=== PATIENT | female | born 1980 | race Caucasian/White ===

== ENCOUNTER 2017-03-17 08:07 | Emergency (ER) | payer SELFPAY ==
[~2017-03-17] VITALS: Ht 165.1 cm; Wt 77.1 kg
[~2017-03-17 08:07] MED LIST: ACHYD1T; CALC-52 PO; CALCIUM; CYAN100053 IJ; DCS100C PO; FLUC100T PO; HYDR1TAB PO; IBP800T PO; MULTI-VITAMIN; OXYC1TAB12 PO; PHEN200T27 PO; PREN1TAB14 PO; PSEU120T53 PO; SULF1TAB38 PO; VIT B6; [UNRECOGNIZED DRUG - REMARK]; diflucan
[2017-03-17] MEDS ORDERED: KETOROLAC 60 MG/2 ML VIAL IM ONE (08:45)
--- NOTE | 2017-03-17 08:57 | Diagnostic Imaging Report ---
INDICATION: Hip pain COMPARISON: None FINDINGS: Single frontal view of the pelvis is obtained. No acute fracture, malalignment or osseous destructive process is seen. Hip joint spaces are preserved. Femoral heads appear smooth, round and symmetric. The sacroiliac joints appear unremarkable. IMPRESSION: No acute abnormality is demonstrated. Dictated by: Dictated on workstation # [id number]
--- NOTE | 2017-03-17 08:59 | Diagnostic Imaging Report ---
INDICATION: Right hip pain COMPARISON: None FINDINGS: Two views of the right hip are obtained. No acute fracture, malalignment or osseous destructive process is seen. Femoral head appears smooth and round and the hip joint spaces are preserved. The right sacroiliac joint spaces appear unremarkable. IMPRESSION: No acute abnormalities demonstrated. Dictated by: Dictated on workstation # [id number]
--- NOTE | 2017-03-17 09:13 | ED General ---
General Chief Complaint: Hip/Pelvic Problems Stated Complaint: R HIP PAIN Nursing Triage Note: PT CO OF R HIP PAIN FOR A FEW MONTHS AND WORSENING, PT STATES HAS GONE TO [facility] AND HAS HAD NOT RELIEF Nursing Sepsis Screen: No Definite Risk Source of Information: Patient Exam Limitations: No Limitations Allergies and Home Medications Allergies Coded Allergies: Soap (Unverified Allergy, Mild, RASH, 03/03/15) povidone-iodine (Unverified Allergy, Mild, RASH, 03/03/15) Past Qqpbass-Nicjtw-Aiclei Hx Patient Social History Alcohol Use: Denies Use Recreational Drug Use: No Smoking Status: Never a Smoker Former Smoker/When Quit: Jan 26, 1998 Recent Foreign Travel: No Contact w/Someone Who Travel: No Recent Infectious Disease Expo: No Recent Hopitalizations: No Immunizations Up To Date Tetanus Booster (TDap): More than 5yrs PED Vaccines UTD: Yes Surgeries HX Surgeries: Yes (GASTRIC BYPASS 2002, SINUS SURGERY X2) Respiratory Hx Respiratory Disorders: Yes (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 FOR TB) Cardiovascular Hx Cardiac Disorders: No (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) Neurological Hx Neurological Disorders: No Reproductive System Hx Reproductive Disorders: No Sexually Transmitted Disease: No HIV/AIDS: No Female Reproductive Disorders: Denies Genitourinary Hx Genitourinary Disorders: Yes Genitourinary Disorders: Bladder Infection Gastrointestinal Hx Gastrointestinal Disorders: Yes (GASTRIC BYPASS 2002) Gastrointestinal Disorders: Gastroesophageal Reflux, Hiatal Hernia Musculoskeletal Hx Musculoskeletal Disorders: No Endocrine Hx Endocrine Disorders: No HEENT HX ENT Disorders: Yes (SINUS SURGERY) Loss of Vision: Denies Hearing Impairment: Denies Cancer Hx Cancer: No Psychosocial Hx Psychiatric Problems: No Integumentary HX Skin/Integumentary Disorder: No Blood Transfusions Hx Blood Disorders: No Adverse Reaction to a Blood Tr: No Family Medical History Family Medial History: Diabetes mellitus 19 FATHER 19 MOTHER Physical Exam Vital Signs Vital Sign - Last 12Hours 03/17/17 08:10 Temp 97.6 Pulse 64 Resp 18 B/P (MAP) 141/63 Pulse Ox 97 Capillary Refill : Less Than 3 Seconds Progress/Results/Core Measures Results/Orders My Orders Orders - ZAC CHAMBERS MD Pelvis (03/17/17 08:36) Hip, Right, 2 Views (03/17/17 08:36) Ketorolac Injection (Toradol Injection) (03/17/17 08:45) Medications Given in ED Current Medications Medications Dose Ordered Sig/Adina Route Start Time Stop Time Status Last Admin Dose Admin Ketorolac Tromethamine 60 mg ONCE ONCE IM 03/17/17 08:45 03/17/17 08:46 DC 03/17/17 08:43 60 MG Vital Signs/I&O Vital Sign - Last 12Hours 03/17/17 08:10 Temp 97.6 Pulse 64 Resp 18 B/P (MAP) 141/63 Pulse Ox 97 Blood Pressure Mean: 89 Diagnostic Imaging Diagonstic Imaging: Xray Plain Films/CT/US/NM/MRI: hip Comments Right hip x-ray viewed by me and report reviewed. See report below: NAME: [facility] REC#: [id number] PT STATUS: REG ER : 1980 PHYSICIAN: ZAC CHAMBERS MD ADMIT DATE: 03/17/17/ER Draft Date of Exam:03/17/17 HIP, RIGHT, 2 VIEWS INDICATION: Right hip pain COMPARISON: None FINDINGS: Two views of the right hip are obtained. No acute fracture, malalignment or osseous destructive process is seen. Femoral head appears smooth and round and the hip joint spaces are preserved. The right sacroiliac joint spaces appear unremarkable. IMPRESSION: No acute abnormalities demonstrated. Dictated on workstation # [id number] Dict: 03/17/17 0855 Trans: 03/17/17 0859 ELAN [id number] Interpreted by: LETICIA GLOVER DO Diagonstic Imaging: Xray Plain Films/CT/US/NM/MRI: pelvis Comments Pelvis x-ray viewed by me and report reviewed. See report below: NAME: [facility] REC#: [id number] PT STATUS: REG ER : 1980 PHYSICIAN: ZAC CHAMBERS MD ADMIT DATE: 03/17/17/ER Draft Date of Exam:03/17/17 PELVIS INDICATION: Hip pain COMPARISON: None FINDINGS: Single frontal view of the pelvis is obtained. No acute fracture, malalignment or osseous destructive process is seen. Hip joint spaces are preserved. Femoral heads appear smooth, round and symmetric. The sacroiliac joints appear unremarkable. IMPRESSION: No acute abnormality is demonstrated. Dictated on workstation # [id number] Dict: 03/17/17 0854 Trans: 03/17/17 0857 [facility] [id number] Interpreted by: LETICIA GLOVER DO Departure Impression Impression: Primary Impression: Right hip pain Additional Impression: Sacroiliitis Disposition: 01 HOME, SELF-CARE Condition: Improved Departure-Patient Inst. Decision time for Depature: 09:22 Referrals: NO,LOCAL PHYSICIAN (PCP) Primary Care Physician Patient Instructions: Sacroiliac Joint Pain Add. Discharge Instructions: Use ibuprofen 600 mg every 6 hours or 800 mg every 8 hours for primary pain relief. Add hydrocodone for pain not controlled by ibuprofen. Use your steroids (prednisone) as prescribed. Avoid heavy lifting, excessive bending, or other strenuous activity until pain completely resolves. Call the [facility] tomorrow for an appointment. Return to care if symptoms worsen. Consider applying for hospital financial assistance. Request paperwork at discharge today. Take ibuprofen and prednisone with food or milk to avoid stomach irritation. Please also note that prednisone may cause jitteriness or sleep disturbance. Take it early in the day to avoid sleep disturbance. All discharge instructions reviewed with patient and/or family. Voiced understanding. Scripts Hydrocodone/Acetaminophen (Hydrocodon -Acetaminophen 5-325) 1 Each Tablet 1 EACH PO Q4H Y for PAIN, #10 TAB Prov: ZAC CHAMBERS MD 03/17/17 Prednisone (Prednisone) 20 Mg Tab 40 MG PO DAILY, #8 TAB Prov: ZAC CHAMBERS MD 03/17/17 ZAC CHAMBERS MD March 17, 2017 09:13
[2017-03-17] MEDS ORDERED: PRD20T PO (09:25)
[2017-03-17] MEDS ORDERED: HYDR-3812 PO (09:25)
[2017-03-17] MEDS ORDERED: HYDROcodone/APAP 5 MG/325 MG (LORTAB) TAB PO ONE (09:30)
[2017-03-17 09:34] VITALS: BP 141/63
== END 2017-03-17 09:34 | disposition home or self-care (01) ==
LOC: EDUNIT# 08:07 → ER 08:08
DX: M25.551 Pain in right hip (principal); M46.1 Sacroiliitis, not elsewhere classified
CPT/HCPCS: 72170; 73502; 99283

== ENCOUNTER 2019-10-16 15:33 | Emergency (ER) | payer SELFPAY ==
[~2019-10-16] VITALS: Ht 173 cm; Wt 90.0 kg
[~2019-10-16 15:33] MED LIST changes: +ACHD5005 PO; +PRD20T PO
[2019-10-16] MEDS ORDERED: KETOROLAC 60 MG/2 ML VIAL IM ONE (16:00)
--- NOTE | 2019-10-16 16:03 | ED GU-Female ---
General Chief Complaint: General Problems/Pain Stated Complaint: LOW BACK PAIN Nursing Triage Note: Patient reports right lower back pain radiating down her right leg pain Nursing Sepsis Screen: No Definite Risk Source: patient, family (daughter) Exam Limitations: no limitations History of Present Illness Date Seen by Provider: Oct 16, 2019 Time Seen by Provider: 15:39 Initial Comments Presents ER by private conveyance with her daughter and chief complaint of low pelvic pain. She also complains of some aching in her right ear. She's had no d ischarge fevers chills cough sore throat or shortness of breath. She says this pain is consistent with her ovulatory pain she's been experiencing for the past several months. She's following with Dr. Werner and has plans for hysterectomy in December. She's had endometriosis before. He put her on ketorolac that she only takes one dose a day. Her last dose she took was yesterday. She says in the past she's coming in and received an injection of Toradol and this is helped significantly with her pain. She's having no diarrhea, dysuria, constipation. Allergies and Home Medications Allergies Coded Allergies: Soap (Unverified Allergy, Mild, RASH, 03/03/15) povidone-iodine (Unverified Allergy, Mild, RASH, 03/03/15) Home Medications Hydrocodone Bit/Acetaminophen 1 Each Tablet, 1 EACH PO Q4H PRN for PAIN Prescribed by: ZAC SHEIKH on 03/17/17924 Prednisone 20 Mg Tab, 40 MG PO DAILY Prescribed by: ZAC SHEIKH on 03/17/17924 Patient Home Medication List Home Medication List Reviewed: Yes Review of Systems Review of Systems Constitutional: No chills, No diaphoresis EENTM: No ear discharge, No ear pain Respiratory: No cough, No phlegm, No short of breath Cardiovascular: No chest pain, No edema Gastrointestinal: see HPI; No abdominal pain, No constipation, No diarrhea, No nausea, No vomiting Genitourinary: denies burning, denies discharge, denies dysuria : No Musculoskeletal: No back pain, No joint pain Skin: No pruritus, No rash All Other Systemes Reviewed Negative Unless Noted: Yes Past Kpijsfn-Vibtrf-Xjusnk Hx Patient Social History Alcohol Use: Denies Use Recreational Drug Use: No Recent Foreign Travel: No Contact w/Someone Who Travel: No Recent Infectious Disease Expo: No Recent Hopitalizations: No Immunizations Up To Date Tetanus Booster (TDap): More than 5yrs PED Vaccines UTD: Yes Past Medical History Surgeries: Yes (GASTRIC BYPASS 2003, SINUS SURGERY X2) Section, Tubal Ligation Respiratory: Yes (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 FOR TB) Cardiac: No (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) Neurological: No Reproductive Disorders: No Female Reproductive Disorders: Denies Sexually Transmitted Disease: No HIV/AIDS: No Bladder Infection Gastrointestinal: Yes (GASTRIC BYPASS 2002) Gastroesophageal Reflux, Hiatal Hernia Musculoskeletal: No Endocrine: No Loss of Vision: Denies Hearing Impairment: Denies Cancer: No Psychosocial: No Integumentary: No Blood Disorders: No Adverse Reaction/Blood Tranf: No Family Medical History Diabetes mellitus 19 FATHER 19 MOTHER Physical Exam Vital Signs Vital Signs - First Documented 10/16/19 15:50 Temp 36.4 Pulse 100 Resp 18 B/P (MAP) 146/76 (99) Pulse Ox 100 Capillary Refill : Less Than 3 Seconds Height, Weight, BMI Height: 5'5.00" Weight: 170lbs. oz. 77.931677gy; 30.00 BMI Method:Stated General Appearance: WD/WN, no apparent distress HEENT: PERRL/EOMI, TMs normal, pharynx normal Neck: non-tender, supple Cardiovascular: normal peripheral pulses, regular rate, rhythm Respiratory: no respiratory distress, no accessory muscle use Gastrointestinal: normal bowel sounds, non tender, soft Neurologic/Psychiatric: alert, normal mood/affect, oriented x 3 Skin: normal color, warm/dry Progress/Results/Core Measures Suspected Sepsis Recent Fever Within 48 Hours: No Infection Criteria Present: None New/Unexplained Altered Menta: No Sepsis Screen: No Definite Risk SIRS Temperature: Pulse: 100 Respiratory Rate: 18 Blood Pressure 146 /76 Mean: 99 Results/Orders My Orders Orders - JIMMY THACKER Ketorolac Injection (Toradol Injection) (10/16/19 16:00) Medications Given in ED Current Medications Medications Dose Ordered Sig/Adina Route Start Time Stop Time Status Last Admin Dose Admin Ketorolac Tromethamine 60 mg ONCE ONCE IM 10/16/19 16:00 10/16/19 16:01 DC 10/16/19 16:10 60 MG Vital Signs/I&O 10/16/19 15:50 Temp 36.4 Pulse 100 Resp 18 B/P (MAP) 146/76 (99) Pulse Ox 100 Capillary Refill : Less Than 3 Seconds Blood Pressure Mean: 99 Progress Note : Time: 16:00 Progress Note The patient would like a Toradol shot and I think it's reasonable for her mittelschmerz pain. She has requested Tylenol 3 at over that opiates are not really indicated for mid-ovulatory pain. She has aseptic vital signs and a benign abdominal exam smiling and answering questions appropriately. No mesenteric signs. We have offered to do urine or workup and she has declined at this time. We'll encourage her to follow up outpatient as necessary. Departure Impression Primary Impression: Mittelschmerz phenomenon Disposition: 01 HOME, SELF-CARE Condition: Stable Departure-Patient Inst. Decision time for Depature: 16:02 Referrals: [facility]/K (PCP/Family) Primary Care Physician ANTONY WERNER MD Patient Instructions: Painful Ovulation (DC) Add. Discharge Instructions: Keep your follow-up appointment with Dr. Werner. Continue to use the ketorolac once or twice a day as necessary for pain. Do not use it for more than 3 days in a row. Take omeprazole 40 mg or pantoprazole 40 mg daily and use the ketorolac to reduce acid reflux and indigestion. All discharge instructions reviewed with patient and/or family. Voiced understanding. JIMMY THACKER Oct 16, 2019 16:03
[2019-10-16 16:23] VITALS: BP 146/76
[2019-10-17] MEDS ORDERED: PRD20T PO (21:58)
== END 2019-10-16 16:23 | disposition home or self-care (01) ==
LOC: EDUNIT# 15:33 → ER 15:34
DX: N94.0 Mittelschmerz (principal); K21.9 Gastro-esophageal reflux disease without esophagitis; Z88.8 Allergy status to other drugs, medicaments and biological substances; Z79.52 Long term (current) use of systemic steroids; Z98.51 Tubal ligation status
CPT/HCPCS: 96372; 99284

== ENCOUNTER 2019-10-17 18:56 | Emergency (ER) | payer SELFPAY ==
[~2019-10-17] VITALS: Ht 165.1 cm; Wt 86.4 kg
--- NOTE | 2019-10-17 21:04 | ED Back Pain ---
General Chief Complaint: Back Problems Stated Complaint: BACK PAIN Nursing Triage Note: Pt amb to room #10 with c/o Rt hip and lower back discomfort. Pt reports she was seen in this ED on 10/16/19 d/t similar symptoms. Pt reports on this day pain increased. Pt states, "It feels like i'm having contractions, but I know i'm not ." Pt reports hx endometriosis and is scheduled to have hysterectomy d/t symptoms. Denies fever or chills. Nursing Sepsis Screen: No Definite Risk Source of Information: Patient Exam Limitations: No Limitations (JHON LEON,MED STUDENT) History of Present Illness Date Seen by Provider: Oct 17, 2019 Time Seen by Provider: 20:21 Initial Comments Pt ambulates to ED with chief complaint of back pain, right hip pain, and abdominal pain. Pain began 2 days ago and has been steadily increasing, today before arrival felt cramping/contractions and pain in her abdomen she likened to those she experienced in childbirth. Pain back and hip is achy, 7/10 and does not radiate. States NSAIDs work Pt states she has been diagnosed with endometriosis and has this pain any time she is menstruating. She has a hysterectomy scheduled with Dr. Sales and is requesting something for the pain. Was last seen in the ER 10/16/2019 and requested Tylenol 3. Location: Lumbar Spine, Paraspinous Muscles Timing/Duration: 1-2 Days Severity: Moderate Pain/Injury Location: Abdomen, Back, Lower Extremity (R hip) Modifying Factors: Worse With Movement; Improves With Pain Medication Associated Symptoms: No fever, No weakness, No numbness in legs/feet, No tingling in legs/feet, No sensory/motor loss; lower back pain (JHON LEON,MED STUDENT) Allergies and Home Medications Allergies Coded Allergies: Soap (Unverified Allergy, Mild, RASH, 03/03/15) povidone-iodine (Unverified Allergy, Mild, RASH, 03/03/15) Home Medications Hydrocodone Bit/Acetaminophen 1 Each Tablet, 1 EACH PO Q4H PRN for PAIN Prescribed by: ZAC SHEIKH on 03/17/1725 Prednisone 20 Mg Tab, 40 MG PO DAILY Prescribed by: ZAC SHEIKH on 03/17/1725 Prednisone 20 Mg Tab, 40 MG PO DAILY Prescribed by: KP MARCIAL on 10/17/19 6857 Patient Home Medication List Home Medication List Reviewed: Yes (JHON LEON MED STUDENT) Review of Systems Constitutional: No chills, No fever EENTM: No ear pain, No eye pain, No vision loss, No mouth pain, No nose pain, No throat pain Respiratory: No cough, No dyspnea on exertion Cardiovascular: No chest pain, No edema, No palpitations Gastrointestinal: abdominal pain; No constipation, No diarrhea, No nausea, No vomiting Genitourinary: No incontinence, No pain Musculoskeletal: No back pain, No joint pain Skin: No lesions, No lumps, No rash Psychiatric/Neurological: Denies Headache, Denies Numbness, Denies Paresthesia (JHON LEON MED STUDENT) Past Vavkvhp-Kjjxkq-Whzswv Hx Patient Social History Alcohol Use: Denies Use Recreational Drug Use: No Smoking Status: Never a Smoker 2nd Hand Smoke Exposure: No Recent Foreign Travel: No Contact w/Someone Who Travel: No Recent Infectious Disease Expo: No Recent Hopitalizations: No (JHON LEON MED STUDENT) Immunizations Up To Date Tetanus Booster (TDap): More than 5yrs PED Vaccines UTD: Yes (JHON LEON MED STUDENT) Past Medical History Surgeries: Yes (GASTRIC BYPASS 2003, SINUS SURGERY X2) Section, Tubal Ligation Respiratory: Yes (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 FOR TB) Cardiac: No (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) Neurological: No Reproductive Disorders: No Female Reproductive Disorders: Denies Sexually Transmitted Disease: No HIV/AIDS: No Bladder Infection Gastrointestinal: Yes (GASTRIC BYPASS 2002) Gastroesophageal Reflux, Hiatal Hernia Musculoskeletal: No Endocrine: No Loss of Vision: Denies Hearing Impairment: Denies Cancer: No Psychosocial: No Integumentary: No Blood Disorders: No Adverse Reaction/Blood Tranf: No (JHON LEON MED STUDENT) Family Medical History Diabetes mellitus 19 FATHER 19 MOTHER Physical Exam Vital Signs Vital Signs - First Documented 10/17/19 19:29 Temp 36.5 Pulse 82 Resp 17 B/P (MAP) 142/94 (110) Pulse Ox 100 O2 Delivery Room Air (KP MARCIAL) Vital Signs Capillary Refill : Less Than 3 Seconds (JHON LEON MED STUDENT) Height, Weight, BMI Height: 5'5.00" Weight: 170lbs. oz. 77.025488xg; 31.00 BMI Method:Stated General Appearance: No Apparent Distress, WD/WN HEENT: PERRL/EOMI, TMs Normal, Normal ENT Inspection, Pharynx Normal Neck: Full Range of Motion, Normal Inspection, Non Tender, Supple Cardiovascular: Regular Rate, Rhythm, No Edema, No Gallop, No Murmur Respiratory: Chest Non Tender, Lungs Clear, Normal Breath Sounds, No Accessory Muscle Use, No Respiratory Distress Peripheral Pulses: 2+ Dorsalis Pedis (R), 2+ Left Dors-Pedis (L), 2+ Radial Pulses (R), 2+ Radial Pulses (L) Gastrointestinal: Non Tender (non tender to light or deep palpation in four quadrants ), Soft Back: No CVA Tenderness, No Vertebral Tenderness Extremity: No Calf Tenderness, No Pedal Edema Neurologic/Psychiatric: Alert, Oriented x3 Skin: Normal Color, Warm/Dry (JHON LEON,MED STUDENT) Progress/Results/Core Measures Results/Orders My Orders Orders - KP MARCIAL Ketorolac Injection (Toradol Injection) (10/17/19 21:05) Hydrocodone/Apap 10/325 Tablet (Lortab 1 (10/17/19 21:59) (KP MARCIAL) Vital Signs/I&O 10/17/19 10/17/19 19:29 22:30 Temp 36.5 36.5 Pulse 82 82 Resp 17 17 B/P (MAP) 142/94 (110) 142/94 (110) Pulse Ox 100 100 O2 Delivery Room Air (KP MARCIAL) Blood Pressure Mean: 110 Progress Progress Note : Time: 21:07 Progress Note Seen and evaluated. Will administer toradol shot for pain. Performed OMT to piriformis m, hamstrings b/l, and lumbar paraspinal muscles. (JHON LEON,MED STUDENT) Departure Communication (Admissions) Patient seen and evaluated. I agree with the above except where indicated. I have directed the patient's plan of care .Given Toradol 60 mg IM 1 dose with improvement in symptoms. States "I am at peace right now" when asked to rate her pain, but states she thinks she would benefit from 1 dose of opiods before going home. Patient initially reported taking only Toradol once daily at home for pain. Per [facility] and medication reconciliation history patient is noted to receive 56 tablets of hydrocodone 10/325 (1 tab po BID) and flexeril 10mg (1 po BID prn) #60 q2 months from [facility]. Patient last filled the lortab on 10/04/19 and the flexeril on 09/09/19. She states she is 5-6 tablets of L ortab and 7 tablets of Flexeril left as she is saving them to take on the cruise to [place] next Friday. She now states she can have the toradol up to four times daily, but reports upset stomach if she takes it more than 1-2 times per day. She also states she is scheduled to have the hysterectomy done in December, but thinks she is going to call Dr. Werner this week to move the surgery up to November. She does report a history of right-sided sciatica and was previously seen by a chiropractor. She reports improved sciatica until recently when the lower abdominal pain and cramping began. Patient denies bowel incontinence, bladder incontinence, lower extremity weakness, lower extremity numbness, or numbness to the genital area. Patient is alert/oriented 4, no acute distress. Lungs are clear to auscultation, cardiovascular regular rate and rhythm no murmur. Abdomen is soft, nondistended, positive bowel sounds in all quadrants. Unable to reproduce abdominal tenderness on exam. No rebound tenderness or guarding noted. Back normal inspection, no vertebral tenderness or deformity. Right SI joint is TTP without swelling, deformity, or ecchymosis. Rt buttock/hip nontender, no deformity, no swelling. full ROM to the rt hip noted. left buttock/hip negative. We will give 1 dose of Lortab 10/325 in the emergency department prior to discharge. Patient is to contact [facility] for follow-up this week and to contact Dr. Werner's office this week as well. She will return to the emergency department for worsened symptoms or any other concerns. (KP MARCIAL) Impression Primary Impression: Mittelschmerz phenomenon Additional Impression: Lumbar radiculopathy Disposition: HOME, SELF-CARE Condition: Improved Departure-Patient Inst. Decision time for Depature: 21:56 (KP MARCIAL) Referrals: [facility] (PCP/Family) Primary Care Physician Patient Instructions: MANAGING YOUR CHRONIC PAIN, Radiculopathy (DC), Painful Ovulation (DC) Add. Discharge Instructions: All discharge instructions reviewed with patient and/or family. Voiced understanding. Medications as instructed. Continue the Toradol, Lortab, and Flexeril as prescribed by your primary care provider. Follow-up with your primary care provider for recheck this week, call first thing tomorrow morning for appointment time. Follow-up with Dr. Werner for recheck and to schedule a hysterectomy as discussed by him. Return to the emergency department for worsened symptoms, bowel incontinence, bladder incontinence, abdominal swelling, rectal bleeding, black stools, vomiting, fever, numbness of the general area, lower extremity weakness, or any other concerns. Scripts Prednisone (Prednisone) 20 Mg Tab 40 MG PO DAILY, #10 TAB 0 Refills Prov: KP MARCIAL 10/17/19 JHON LEON,MED STUDENT Oct 17, 2019 21:04 KP MARCIAL Oct 17, 2019 21:19
[2019-10-17] MEDS ORDERED: KETOROLAC 60 MG/2 ML VIAL IM STA (21:05)
[2019-10-17] MEDS ORDERED: PRD20T PO (21:58)
[2019-10-17] MEDS ORDERED: HYDROcodone/APAP 10 MG/325 MG (LORTAB) TAB PO STA (21:59)
[2019-10-17 22:30] VITALS: BP 142/94
== END 2019-10-17 22:30 | disposition home or self-care (01) ==
LOC: EDUNIT# 18:56 → ER 18:57
DX: N94.0 Mittelschmerz (principal); M54.16 Radiculopathy, lumbar region; K21.9 Gastro-esophageal reflux disease without esophagitis; Z88.8 Allergy status to other drugs, medicaments and biological substances; Z79.52 Long term (current) use of systemic steroids; Z98.51 Tubal ligation status
CPT/HCPCS: 96372; 99284

== ENCOUNTER 2019-11-09 05:38 | Outpatient (CLI) | payer OTHER ==
[~2019-11-09] VITALS: Ht 165.1 cm; Wt 85.9 kg
[2019-11-09] MEDS ORDERED: FLUO20CA45 PO (13:32)
[2019-11-09] MEDS ORDERED: FERR-84 PO (13:32)
[2019-11-09] MEDS ORDERED: CYCL10TA9 PO (13:32)
[2019-11-09] MEDS ORDERED: HYDR-3820 PO (13:32)
[2019-11-09] MEDS ORDERED: KETO10TA PO (13:32)
== END 2019-11-09 13:39 | disposition home or self-care (01) ==
LOC: PREOP 05:38
PROVIDERS: ATTEND Obstetrics & Gynecology
DX: Z01.818 Encounter for other preprocedural examination (principal)

== ENCOUNTER 2020-05-23 11:15 | Emergency (ER) | payer SELFPAY ==
[~2020-05-23] VITALS: Ht 165 cm; Wt 77.0 kg
[~2020-05-23 11:15] MED LIST changes: +ACHYD1T PO; +CYCL10TA9 PO; +FERR-84 PO; +FLUO20CA46 PO; +IBUP-1780 PO; +KETO10TA PO
[2020-05-23 11:55] LABS: BASOPHILS % (AUTO) 1 % (0-10); EOSINOPHILS # (AUTO) 0.2 10^3/uL (0.0-0.3); EOSINOPHILS % (AUTO) 4 % (0-10); HEMATOCRIT 35 % (35-52); HEMOGLOBIN 10.6 G/DL (11.5-16.0); LYMPHOCYTES # (AUTO) 1.6 X 10^3 (1.0-4.0); LYMPHOCYTES % (AUTO) 35 % (12-44); MEAN CORPUSCULAR HEMOGLOBIN 27 PG (25-34); MEAN CORPUSCULAR HGB CONC 30 G/DL (32-36); MEAN CORPUSCULAR VOLUME 89 FL (80-99); MEAN PLATELET VOLUME 10.2 FL (7.4-10.4); MONOCYTES # (AUTO) 0.3 X 10^3 (0.0-1.0); MONOCYTES % (AUTO) 7 % (0-12); NEUTROPHILS # (AUTO) 2.4 X 10^3 (1.8-7.8); NEUTROPHILS % (AUTO) 54 % (42-75); PLATELET COUNT 253 10^3/uL (130-400); RED CELL DISTRIBUTION WIDTH 15.4 % (10.0-14.5); WHITE BLOOD COUNT 4.4 10^3/uL (4.3-11.0)
[2020-05-23 12:07] LABS: BILIRUBIN,URINE NEGATIVE (NEGATIVE); CLARITY,URINE CLEAR; COLOR,URINE YELLOW; GLUCOSE, URINE (UA) NEGATIVE (NEGATIVE); KETONES,URINE NEGATIVE (NEGATIVE); LEUKOCYTE ESTERASE ,URINE NEGATIVE (NEGATIVE); NITRITE,URINE NEGATIVE (NEGATIVE); PROTEIN,URINE NEGATIVE (NEGATIVE)
[2020-05-23 12:12] LABS: ALANINE AMINOTRANSFERASE 11 U/L (0-55); ALBUMIN 3.9 GM/DL (3.2-4.5); ALKALINE PHOSPHATASE 49 U/L (40-136); AMYLASE 69 U/L (25-125); BILIRUBIN,TOTAL 0.2 MG/DL (0.1-1.0); BUN/CREATININE RATIO 12; CALCIUM 8.5 MG/DL (8.5-10.1); CARBON DIOXIDE 24 MMOL/L (21-32); CHLORIDE 113 MMOL/L (98-107); CREATININE SERUM 0.78 MG/DL (0.60-1.30); GFR ESTIMATED > 60; GLUCOSE 96 MG/DL (70-105); LIPASE 46 U/L (8-78); POTASSIUM 4.1 MMOL/L (3.6-5.0); SODIUM 144 MMOL/L (135-145); TOTAL PROTEIN 6.7 GM/DL (6.4-8.2)
[2020-05-23 12:16] LABS: BACTERIA,URINE NEGATIVE /HPF
[2020-05-23] MEDS ORDERED: NS 100 ML (IVPB) BAG IV ONE (12:30)
[2020-05-23] MEDS ORDERED: fentaNYL INJECTION 100 MCG/2 ML AMP IVP ONE (12:30)
[2020-05-23] MEDS ORDERED: IOHEXOL 350 MG/ML 100 ML (OMNIPAQUE 350) VIAL IV ONE (12:30)
[2020-05-23] MEDS ORDERED: HOLD METFORMIN - RECEIVED CONTRAST 20 ML VIAL IV SCH (12:30)
--- OUTSIDE RECORDS SUMMARY | 2020-05-23 13:00 | XMS REPORT ---
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 Name Role Phone Migration, Doctor Unavailable Unavailable PROBLEMS Type Condition ICD9-CM Code [id number] Code Onset Dates Condition S tatus SNOMED Code Problem Acute right-sided low back pain with right-sided sciatica M54.41 Active 196374095 Problem Vitamin D deficiency E55.9 Active 07600242 Problem Dysmenorrhea N94.6 Active 9265445 00 Problem Endometriosis N80.9 Active 080444 003 Problem Other iron deficiency anemia D50.8 A ctive 18716918 Problem Other chronic pain G89.29 Active 8 7350197 Problem Seasonal allergic rhinitis due to other allergic trigger J30.89 Active 094128780 Problem Mood disorder F39 Active 138084 05 ALLERGIES No Information ENCOUNTERS Encounter Location Date Diagnosis [facility] [address] [facility] [id number] [address] [place] [phone] 20 Dec, 2019 Acute non-recurrent maxillar y sinusitis J01.00 [facility] [address] [facility] [id number] [address] [place] [phone] 18 Dec, 2019 [facility] [address] [facility] [id number] [address] [place] [phone] 19 Nov, 2019 Acute non-recurrent maxillar y sinusitis J01.00 [facility] [address] [facility] [id number] [address] [place] [phone] 19 Nov, 2019 Acute non-recurrent maxillar y sinusitis J01.00 [facility] [address] [facility] [id number] [address] [place] [phone] 18 Nov, 2019 [facility] [address] [facility] [id number] [address] [place] [phone] Oct, [facility] [address] [id number] [address] [place] [id number] Oct, Caries K02.9 [facility] [address] [id number] [address] [place] [phone] Oct, Oral health maintenance stat us requiring routine preventive dental care K08.9 and Periodontitis K05.30 [facility] [address] [id number] [address] [place] [phone] 08 Oct, 2019 Endometriosis N80.9 [facility] [address] [id number] [address] [place] [phone] Oct, Endometriosis N80.9 [facility] [address] [id number] [address] [place] [phone] Sep, [facility] [address] [id number] [address] [place] [phone] Sep, Caries K02.9 ; Dental examin ation Z01.20 ; Oral health maintenance status requiring routine preventive dental care K08.9 and Periodontitis K05.30 [facility] [address] [id number] [address] [place] [phone] Sep, Endometriosis N80.9 [facility] [address] [id number] [address] [place] [phone] Sep, Endometriosis N80.9 [facility] [address] [id number] [address] [place] [phone] Sep, [facility] [address] [id number] [address] [place] [id number] Sep, Endometriosis N80.9 [facility] [address] [id number] [address] [place] [phone] Aug, Acute right-sided low back p ain with right-sided sciatica M54.41 [facility] [address] [id number] [address] [place] [phone] Jul, Flu-like symptoms R68.89 [facility] [address] [id number] [address] [place] [phone] Jul, [facility] [address] [facility] [id number] [address] [place] [phone] 15 Jul, 2019 Acute right-sided low back p ain with right-sided sciatica M54.41 [facility] [address] [facility] [id number] [address] [place] [phone] 08 Jul, 2019 Well woman exam with routine gynecological exam Z01.419 [place] [address] [facility] [id number] [address] [place] [phone] 19 Jun, 2019 Otalgia of left ear H92.02 a nd Jaw pain R68.84 [place] [address] [facility] [id number] [address] [place] [phone] 17 Jun, 2019 Acute right-sided low back p ain with right-sided sciatica M54.[address] [place] [address] 13 Jun, 2019 Left ovarian cyst N83.202 [place] [address] [facility] [id number] [address] [place] [phone] 12 Jun, 2019 Well woman exam with routine gynecological exam Z01.419 [place] [address] [facility] [id number] [address] [place] [phone] 06 Jun, 2019 Acute right-sided low back p ain with right-sided sciatica M54.[address] [id number] [address] 04 Jun, 2019 [place] [address] [facility] [id number] [address] [place] [phone] May, [place] [address] [facility] [id number] [address] [place] [phone] May, Acute right-sided low back p ain with right-sided sciatica M54.41 [place] [address] [facility] [id number] [address] [place] [phone] May, Well woman exam with routine gynecological exam Z01.419 ; Pelvic pain R10.2 ; Dysmenorrhea N94.6 ; Dyschezia K59.00 and History of endometriosis Z87.42 [facility] [address] [id number] [address] [place] [phone] May, Acute right-sided low back p ain with right-sided sciatica M54.41 [facility] [address] [id number] [address] [place] [phone] Apr, Acute right-sided low back p ain with right-sided sciatica M54.41 and Endometriosis N80.9 [facility] [address] [id number] [address] [place] [phone] Apr, Seasonal allergic rhinitis d ue to other allergic trigger J30.89 [facility] [address] [id number] [address] [place] [phone] Apr, Mood disorder F39 [facility] [address] [id number] [address] [place] [phone] Mar, Mood disorder F39 ; Pain in unspecified limb M79.609 and Dorsalgia, unspecified M54.9 [facility] [address] [id number] [address] [place] [phone] February, Pain in unspecified limb M79 .609 [facility] [address] [id number] [address] [place] [phone] Jan, [facility] [address] [id number] [address] [place] [phone] Jan, Pain in unspecified limb M79 .609 and Dorsalgia, unspecified M54.9 [facility] [address] [id number] [address] [place] [phone] Jan, Pain in unspecified limb M79 .609 [facility] [address] [id number] [address] [place] [phone] Jan, Seasonal allergic rhinitis d ue to other allergic trigger J30.89 [facility] [address] [id number] [address] [place] [phone] Dec, Low back pain M54.5 [facility] [address] [facility] [id number] [address] [place] [phone] 08 Nov, 2018 Pharyngitis due to other org anism J02.8 [facility] [address] [facility] [id number] [address] [place] [phone] 02 Nov, 2018 [facility] [address] [facility] [id number] [address] [place] [phone] Oct, Lumbosacral neuritis M54.17 [facility] [address] [facility] [id number] [address] [place] [id number] Oct, Pharyngitis due to other org anism J02.8 [facility] [address] [facility] [id number] [address] [place] [phone] Oct, Vitamin D deficiency E55.9 ; Other chronic pain G89.29 ; Other iron deficiency anemia D50.8 ; Onychomycosis B35.1 and Nail fungal infection B35.1 [facility] [address] [facility] [id number] [address] [place] [phone] Sep, Pharyngitis due to other org anism J02.8 [facility] [address] [facility] [id number] [address] [place] [phone] Aug, Pharyngitis due to other org anism J02.8 [facility] [address] [facility] [id number] [address] [place] [phone] Jul, [facility] [address] [facility] [id number] [address] [place] [phone] Jul, Other chronic pain G89.29 [facility] [address] [facility] [id number] [address] [place] [phone] Jul, Lumbosacral neuritis M54.17 [facility] [address] [facility] [id number] [address] [place] [phone] Jul, [facility] [address] [id number] [address] [place] [phone] Jul, Other iron deficiency anemia D50.8 [facility] [address] [id number] [address] [place] [phone] Jul, [facility] [address] [facility] [id number] [address] [place] [phone] Jun, [facility] [address] [facility] [id number] [address] [place] [phone] Jun, Other iron deficiency anemia D50.8 [facility] [address] [id number] [address] [place] [phone] Jun, Other iron deficiency anemia D50.8 ; Lumbosacral neuritis M54.17 and Low back pain M54.5 [facility] [address] [id number] [address] [place] [phone] May, Other iron deficiency anemia D50.8 [facility] [address] [id number] [address] [place] [phone] Apr, Other iron deficiency anemia D50.8 [facility] [address] [facility] [id number] [address] [place] [phone] Mar, Other iron deficiency anemia D50.8 and Lumbosacral neuritis M54.17 [facility] [address] [id number] [address] [place] [phone] Mar, Other iron deficiency anemia D50.8 and Acute right-sided low back pain with right-sided sciatica M54.41 [facility] [address] [id number] [address] [place] [phone] Mar, [facility] [address] [facility] [id number] [address] [place] [phone] Mar, [facility] [address] [facility] [id number] [address] [place] [phone] Mar, Low back pain M54.5 [facility] [address] [id number] [address] [place] [phone] February, Low back pain M54.5 [facility] [address] [id number] [address] [place] [phone] Jan, Low back pain M54.5 and Lumb osacral neuritis M54.17 [facility] [address] [id number] [address] [place] [phone] Dec, [facility] [address] [id number] [address] [place] [phone] Dec, Low back pain M54.5 [facility] [address] [id number] [address] [place] [phone] Dec, Low back pain M54.5 [facility] [address] [facility] [id number] [address] [place] [phone] Nov, [facility] [address] [facility] [id number] [address] [place] [phone] Nov, Low back pain M54.5 [facility] [address] [facility] [id number] [address] [place] [phone] Oct, Acute right-sided low back p ain with right-sided sciatica M54.41 [facility] [address] [facility] [id number] [address] [place] [address] Oct, Low back pain M54.5 [facility] [address] [facility] [id number] [address] [place] [phone] Oct, Low back pain M54.5 ; Other chronic pain G89.29 ; Vitamin D deficiency E55.9 ; Vitamin B12 deficiency E53.8 and Other iron deficiency anemia D50.8 [facility] [address] [facility] [id number] [address] [place] [phone] Sep, Acute right-sided low back p ain with right-sided sciatica M54.41 [facility] [address] [id number] [address] [place] [phone] Aug, Lumbosacral neuritis M54.17 [facility] [address] [id number] [address] [place] [phone] Aug, Acute right-sided low back p ain with right-sided sciatica M54.41 [facility] [address] [id number] [address] [place] [phone] Aug, [facility] [address] [id number] [address] [place] [phone] Jul, Acute right-sided low back p ain with right-sided sciatica M54.41 [facility] [address] [id number] [address] [place] [address] Jul, Acute right-sided low back p ain with right-sided sciatica M54.41 [facility] [address] [id number] [address] [place] [phone] Jul, Lumbosacral neuritis M54.17 [facility] [address] [id number] [address] [place] [phone] Jul, [facility] [address] [id number] [address] [place] [phone] Jun, Acute right-sided low back p ain with right-sided sciatica M54.41 [facility] [address] [id number] [address] [place] [address] Jun, Acute right-sided low back p ain with right-sided sciatica M54.41 [facility] [address] [id number] [address] [place] [address] Jun, Acute right-sided low back p ain with right-sided sciatica M54.41 [facility] [address] [id number] [address] [place] [address] Jun, Acute right-sided low back p ain with right-sided sciatica M54.41 [facility] [address] [facility] [id number] [address] [place] [phone] Jun, [facility] [address] [facility] [id number] [address] [place] [phone] May, Routine gynecological examin ation Z01.419 [facility] [address] [facility] [id number] [address] [place] [address] May, Lumbosacral neuritis M54.17 [facility] [address] [facility] [id number] [address] [place] [phone] May, Lumbosacral neuritis M54.17 [place] [address] [facility] [id number] [address] [place] [phone] Apr, Acute right-sided low back p ain with right-sided sciatica M54.41 [facility] [address] [facility] [id number] [address] [place] [address] Apr, Acute right-sided low back p ain with right-sided sciatica M54.41 [facility] [address] [facility] [id number] [address] [place] [address] Apr, Lumbosacral neuritis M54.17 [facility] [address] [facility] [id number] [address] [place] [address] Mar, Lumbosacral neuritis M54.17 and Vitamin D deficiency E55.9 [facility] [address] [facility] [id number] [address] [place] [phone] Mar, Onychomycosis B35.1 [facility] [address] [facility] [id number] [address] [place] [phone] 07 Mar, 2017 Acute right-sided low back p ain with right-sided sciatica M54.41 ; Iron deficiency E61.1 ; Vitamin D deficiency E55.9 and Bacterial external ear infection, right H60.391 [facility] [address] [facility] [id number] [address] [place] [phone] February, [facility] [address] [place] [id number] [address] [place] [phone] February, Status post gastric bypass f or obesity Z98.84 [place] [address] [place] [id number] [address] [place] [address] February, Status post gastric bypass f or obesity Z98.84 and 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 [place] [address] [place] [id number] [address] [place] [phone] 13 Mar, 2016 Routine check-up Z00.00 [place] [address] [facility] [id number] [address] [place] [phone] Oct, [place] [address] [facility] [id number] [address] [place] [address] Oct, IMMUNIZATIONS No Known Immunizations SOCIAL HISTORY Never Assessed REASON FOR VISIT PLAN OF CARE VITAL SIGNS MEDICATIONS No Known Medications RESULTS No Results PROCEDURES No Known procedures INSTRUCTIONS MEDICATIONS ADMINISTERED No Known Medications MEDICAL (GENERAL) HISTORY Type Description Date Medical History endometriosis Surgical History section x's 5 Surgical History gastric bypass Surgical History tubal ligation Surgical History total hysterectomy Hospitalization History post surgeries
--- OUTSIDE RECORDS SUMMARY | 2020-05-23 13:00 | XMS REPORT ---
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 [employer] [facility] Address [address] [address] Care Team Providers Care Assembly Machine Offbearer Name Role Phone NO, LOCAL PHYSICIAN Unavailable Unavailable ANTONY JARAMILLO Unavailable YANY BOND Unavailable VARUN, YANY Unavailable VARUN, YANY Unavailable VARUN, YANY Unavailable VARUN, YANY Unavailable VARUN, YANY Unavailable VARUN, YANY Unavailable VARUN, YANY Unavailable VARUN, YANY Unavailable VARUN, YANY Unavailable VARUN, YANY Unavailable VANNESA Rai Unavailable VARUN, YANY Unavailable VARUN, YANY Unavailable VARUN, YANY Unavailable VARUN, YANY Unavailable VARUN, YANY Unavailable VARUN, YANY Unavailable ZAC CRUZ Unavailable VARUN, YANY Unavailable VARUN, YANY Unavailable VARUN, YANY Unavailable VARUN, YANY Unavailable VARUN, YANY Unavailable VARUN, YANY Unavailable VARUN, YANY Unavailable VARUN, YANY Unavailable VARUN, YANY Unavailable VARUN, YANY Unavailable VARUN, YANY Unavailable VARUN, YANY Unavailable VARUN YANY Unavailable YANY BOND Unavailable YANY BOND Unavailable YANY BOND Unavailable YANY BOND Unavailable YANY BOND Unavailable ZAC CHAMBERS MD Unavailable Unavailable VARUN YANY Davis Unavailable Unavailable KEDAR ANDERSON, JIMMY North Unavailable Unavailable SAULO ANDERSON, ROSCOE Dinero Unavailable Unavailable KP HARRIS Unavailable Unavailable ANTONY JARAMILLO MD Unavailable Unavailable ANTONY JARAMILLO MD Unavailable Unavailable ZAC CHAMBERS MD Unavailable Unavailable Migration, Doctor Unavailable Unavailable Unavailable Unavailable Unavailable Unavailable Unavailable Unavailable Allergies Allergy Reported Allergen(s) Allergy Type Date of Reaction(s) Care Facility Classificati Onset Provider on Opioid oxyCODONE Drug Allergy 11-09-2019 itching/gas ANTONY [facility] tami ELLA Elias (13 sources) [facility] ([id number]) Encounters Encounter Date Encounter Type Encounter Diagnosis Care Provider Facility Start: Patient encounter YANY BOND [facility] 05-18-2020 procedure [facility] Start: Patient encounter YANY BOND [facility] 05-11-2020 procedure [facility] Start: Patient encounter YANY BOND [facility] 05-09-2020 procedure [facility] Start: Patient encounter YANY BOND [facility] 04-27-2020 procedure [facility] Start: Patient encounter YANY BOND [facility] 03-28-2020 procedure [facility] Start: Patient encounter YANY BOND [facility] 03-23-2020 procedure [facility] Start: Patient encounter YANY BOND [facility] 03-08-2020 procedure [facility] Start: Patient encounter YANY BOND [facility] 02-28-2020 procedure [facility] Start: [facility] Acute maxillary YANY BOND [facility] 01-07-2020 sinusitis, unspecified Start: Telephone encounter YANY BOND [facility] 01-05-2020 Start: [facility] 12-08-2019 sinusitis, unspecified Start: Telephone encounter Acute maxillary YANY ALLAN [facility] 12-08-2019 sinusitis, unspecified Start: [facility] 12-07-2019 Start: Patient encounter ANTONY ELLA [facility] 11-17-2019 procedure [facility] ([id number]) End: 11-18-2019 Start: Telephone encounter YANY BOND [facility] 11-15-2019 Start: [facility] Dental caries, SAMIA VELIZ [facility] 11-11-2019 DENTAL unspecified DENTAL Start: Patient encounter ANTONY ELLA [facility] 11-09-2019 procedure [facility] ([id number]) End: 11-09-2019 Start: [facility] Disorder of teeth and ABI ISABEL [facility] 11-08-2019 DENTAL supporting DENTAL structures, unspecified Start: Patient encounter YANY BOND [facility] 11-08-2019 procedure [facility] ([id number]) Start: Telephone encounter Endometriosis, YANY BOND [facility] 10-27-2019 unspecified Start: [facility] Endometriosis, YANY BOND [facility] 10-21-2019 unspecified Start: Emergency department ROSCOE VERNON MD [facility] [place] [facility] 10-17-2019 patient visit [facility] ([id number]) End: 10-17-2019 Start: Patient encounter KP LIGHT [facility] [address] [facility] 10-17-2019 procedure [facility] ([id number]) Start: Emergency department JIMMY THACKER MD [facility] [place] [facility] 10-16-2019 patient visit [facility] ([id number]) End: 10-16-2019 Start: Patient encounter JIMMY THACKER MD [facility] Via [facility] 10-16-2019 procedure [facility] ([id number]) Start: Telephone encounter YANY HARTMAN [facility] 10-06-2019 Start: [facility] Dental caries, ABI ISABEL [facility] 10-05-2019 DENTAL unspecified DENTAL Start: Patient encounter YANY BOND [facility] 10-04-2019 procedure [facility] ([id number]) Start: [facility] Endometriosis, AYNY BOND [facility] 10-04-2019 unspecified Start: Telephone encounter Endometriosis, YANY BOND [facility] 10-01-2019 unspecified Start: [facility] Endometriosis, YANY BOND [facility] 09-27-2019 unspecified Start: Telephone [facility] 09-27-2019 Start: Telephone encounter Lumbago with YANY BOND [facility] 09-01-2019 sciatica, right side Start: Patient encounter NA NA [facility] 08-10-2019 procedure [facility] ([id number]) Start: [facility] Other general [facility]ISTA [facility]ERNANA [facility] 08-10-2019 CARE symptoms and signs CARE Start: Telephone encounter [facility] 08-10-2019 Start: Telephone encounter Lumbago with YANY BOND [facility] 08-03-2019 sciatica, right side Start: Telephone encounter Encounter for YANY BOND [facility] 07-27-2019 gynecological examination (general) (routine) without abnormal findings Start: Patient encounter YANY BOND [facility] 07-08-2019 procedure [facility] ([id number]) Start: [facility] Otalgia, left ear YANY Mckinley [facility] 07-08-2019 Start: Patient encounter YANY BOND [facility] 07-08-2019 procedure [facility] ([id number]) Start: Telephone encounter Lumbago with YANY BOND [facility] 07-06-2019 sciatica, right side Start: Patient encounter NA NA [facility] 07-02-2019 procedure [facility] ([id number]) Start: Telephone encounter Unspecified ovarian GAVINO SEALS [facility] CINDI ABRAMS 07-02-2019 cyst, left side MAIN Start: Patient encounter NA NA [facility] 07-01-2019 procedure [facility] ([id number]) Start: [facility] Encounter for GAVINO SEALS [facility] 07-01-2019 gynecological examination (general) (routine) without abnormal findings Start: Telephone encounter Lumbago with YANY BOND [facility] 06-25-2019 sciatica, right side Start: Telephone encounter [facility]INO [facility] 06-23-2019 MAIN Start: Telephone encounter YANY HARTMAN [facility] 06-14-2019 Start: Patient encounter [facility] 06-11-2019 procedure gynecological examination (general) (routine) without abnormal findings Start: Telephone encounter Lumbago with YAYN BOND [facility] 06-11-2019 sciatica, right side Start: Telephone encounter Lumbago with YANY BOND [facility] 06-08-2019 sciatica, right side Start: Patient encounter YANY BOND [facility] 05-17-2019 procedure [facility] ([id number]) Start: [facility] Lumbago with YANY BOND [facility] 05-17-2019 sciatica, right side Start: Telephone encounter Other allergic YANY BOND [facility] 05-03-2019 rhinitis Start: Telephone encounter Unspecified mood YAYN BOND [facility] 04-20-2019 [affective] disorder Start: Patient encounter YANY BOND [facility] 03-24-2019 procedure [facility] ([id number]) Start: [facility] Unspecified mood YANY BOND [facility] 03-24-2019 [affective] disorder Start: Telephone encounter Pain in unspecified YANY REYNOLDS L [facility] 03-12-2019 limb Start: Patient encounter YANY BOND [facility] 02-15-2019 procedure [facility] ([id number]) Start: [facility] Pain in unspecified YANY Allison ARL [facility] 02-15-2019 limb Start: Telephone encounter YANY HARTMAN [facility] 02-15-2019 Start: Telephone encounter Pain in unspecified YANY REYNOLDS L [facility] 01-27-2019 limb Start: Patient encounter ELVIRA [facility] 01-21-2019 procedure [facility] ([id number]) [facility] Other allergic YANY BOND [facility] 01-21-2019 rhinitis Start: Telephone encounter Low back pain YANY VARUN [facility] 12-30-2018 Start: Telephone encounter Acute pharyngitis due YANY DOWLING [facility] 11-27-2018 to other specified organisms Start: Telephone encounter YANY VARUN HARTMAN [facility] 11-21-2018 Start: Telephone encounter Radiculopathy, YANY VARUN [facility] 11-16-2018 lumbosacral region Start: Patient encounter YANY VARUN [facility] 11-03-2018 procedure [facility] ([id number]) Start: [facility] Vitamin D deficiency, YANY BOND [facility] 11-03-2018 unspecified Start: Telephone encounter Acute pharyngitis due YANY DOWLING [facility] 11-03-2018 to other specified organisms Start: Telephone encounter Acute pharyngitis due YANY Allison JOSEY [facility] 10-07-2018 to other specified organisms Start: Patient encounter YANY VARUN Cunningham [facility] 09-09-2018 procedure [facility] ([id number]) Start: [facility] Acute pharyngitis due YANY VARUN [facility] 09-09-2018 to other specified organisms End: 09-09-2018 Start: [facility] Other chronic pain YANY JAVY VELAZCO [facility] 08-17-2018 End: 08-17-2018 Start: Telephone encounter YANY HARTMAN [facility] 08-17-2018 End: 08-17-2018 Start: [facility] Radiculopathy, YANY VARUN [facility] 08-12-2018 lumbosacral region End: 08-12-2018 Start: Telephone encounter YANY VARELA [facility] 08-12-2018 End: 08-12-2018 Start: Telephone encounter Other iron deficiency YANY Allison JOSEY [facility] 08-11-2018 anemias End: 08-11-2018 Start: Telephone encounter YANY HARTMAN [facility] 07-28-2018 End: 07-28-2018 Start: Telephone encounter YANY HARTMAN [facility] 07-13-2018 End: 07-13-2018 Start: Consultation for Other iron deficiency YANY BOND [facility] 07-10-2018 laboratory medicine anemias End: 07-10-2018 Start: Telephone encounter Other iron deficiency YANY DOWLING [facility] 07-10-2018 anemias End: 07-10-2018 Start: Telephone encounter Other [facility] 06-10-2018 anemias End: 06-10-2018 Start: Patient encounter NA NA [facility] 10-29-2017 procedure [facility] ([id number]) Start: Patient encounter NA NA [facility] 04-01-2017 procedure [facility] ([id number]) Start: Patient encounter ZAC CHAMBERS MD Not Available ([id number]) 03-17-2017 procedure Start: Emergency department ZAC CHAMBERS MD [facility] 03-17-2017 patient visit [facility] ([id number]) End: 03-17-2017 Start: Evaluation and ANTONY JARAMILLO Not Avail able ([id number]) 03-03-2015 management of MD inpatient End: 03-05-2015 Start: Patient encounter ANTONY GOULDAM Not Av ailable ([id number]) 01-26-2015 procedure MD End: 01-26-2015 Encounter for other ANTONYIRMA WOMACKELLA H [address] preprocedural [facility] examination ([id number]) Encounter for dental Doctor [facility] examination and [facility] [place] ([id number]) abnormal findings Medical Equipment No Information Goals No Information Immunizations Immunizatio Immunization Notes Care Provider Facility n Date 08-12-2018 TORADOL (IM) 60 MG/2ML YANY BOND [facility] (UP TO 15 MG) Other Phone: [facility] [place] ([id number]) Interventions No Information Medications Medication Drug Dates Sig Sig (Original) Class(es) (Normalized) amoxicillin 500 mg oral Penicillin Start: take 1 capsule Amoxicillin 500 MG Orally every 8 hrs 1 capsule -class 09-09-2018 by mouth every capsule 8h Aug, 10 day(s) Active (1 source) Antibacter eight hours ial Payers The data below is from unstructured sources Payer Name Policy Number Subscriber Name Relationship [employer] [place] [id number] Harvinder Leon 02 Plan of Treatment Date Care Activity Detail Author Start: [facility] 09-29-2018 Start: [facility] 08-17-2018 Problems Active Problems Problem Problem Date Last Documented Episodic/Chr Provider Classificati Recorded Date onic on Disorders of Chronic periodontitis, unspecified Chronic Doctor teeth and ; Translations: [ - Periodontitis M igration jaw K05.30] (2 sources) Endometriosi Endometriosis of uterus ; Chronic DE NNIS s Translations: [Endometriosis HIGGIN BOTHAM (11 sources) (clinical)] MD Esophageal Gastro-esophageal reflux disease Chronic JIMMY KEDAR disorders without esophagitis MD (11 sources) Headache; Migraine, unspecified, not Chronic D SAMAN including intractable, without status HIGGINB OTHAM migraine migrainosus (2 sources) Menstrual Dysmenorrhea ; Translations: Chronic Doctor disorders [Dysmenorrhea, unspecified] Migrati on (2 sources) Mood Mood disorder ; Translations: Chronic Doctor disorders [Unspecified mood [affective] Migra tion (3 sources) disorder] Other female [place] Chronic JIMMY KEDAR genital MD disorders (9 sources) Other female Abnormal uterine and vaginal Chronic ANTONY genital bleeding, unspecified ELLA disorders MD (2 sources) Other upper Seasonal allergic rhinitis ; Chronic Doctor respiratory Translations: [Seasonal allergic Mi gration disease rhinitis due to other aller gic (1 source) trigger] Other upper Other allergic rhinitis ; Chronic Do ctor respiratory Translations: [ - Seasonal allergic Migration disease rhinitis due to other aller gic (2 sources) trigger J30.89] Past or Other Problems Problem Problem Date Last Documented Episodic/Chr Provider Classificati Recorded Date onic on Abdominal Pelvic and perineal pain ; Episodic D octor pain Translations: [ - Pelvic pain Migra tion (1 source) R10.2] Allergic Allergy status to other drugs, Episodic JIMMY KEDAR reactions medicaments and biological MD (11 sources) substances status Contraceptiv Tubal ligation status Episodic JIMMY KEDAR e and MD procreative management (9 sources) Disorders of Dental caries, unspecified ; Episodic Doctor teeth and Translations: [Disorder of teeth Mi gration jaw and supporting structures, (5 sources) unspecified] Early or Threatened premature labor, Episodic ANTONY threatened antepartum condition or SHANTAGINBOTHA M labor complication ; Translations: [Early MD (6 sources) onset of delivery, delivere d, with or without mention of antepartum condition] Other nursing home (current) use of systemic Episodic JIMMY KEDAR aftercare steroids (9 sources) Other nursing home (current) use of opiate Episodic ANTONY aftercare analgesic ELLA (2 sources) Other Other nursing home (current) drug Episodic ANTONY aftercare therapy ELLA (2 sources) Other Pain in unspecified limb ; Episodic D octor connective Translations: [ - Pain in Migration tissue unspecified limb M79.609] disease (4 sources) Other ear Otalgia, left ear ; Translations: [ Episodic Doctor and sense - Otalgia of left ear H92.02] Migra tion organ disorders (1 source) Other female Personal history of other diseases Episodic Doctor genital of the female genital tract ; Migra tion disorders Translations: [ - History o f (1 source) endometriosis Z87.42] Other Peritoneal adhesions Episodic ANTONY gastrointest (postprocedural) (postinfection) HI GGINBOTHAM inal MD disorders (2 sources) Other Constipation, unspecified ; Episodic Doctor gastrointest Translations: [ - Dyschezia K59.00] Migration inal disorders (1 source) Other Pain in right hip Episodic ZAC non-traumati BRUEGGEMANN c joint disorders (10 sources) Other Outcome of delivery, single Episodic ANTONY liveborn ELLA and delivery MD including normal (3 sources) Other upper Acute pharyngitis due to other Episodic YANY VARUN respiratory specified organisms ; Translations: Other Phone: infections [Acute maxillary sinusitis, [phone] (8 sources) unspecified] 3 Ovarian cyst Unspecified ovarian cyst, left side Episodic Doctor (1 source) ; Translations: [ - Left ovarian Mi gration cyst N83.202] Previous Previous delivery, Episodic ANTONY delivered, with or without mention ELLA (3 sources) of antepartum condition Residual Family history of diabetes mellitus Episodic NATONY codes; ELLA unclassified (2 sources) Residual Family history of ischemic heart Episodic ANTONY codes; disease and other diseases of the H IGGINBOTHAM unclassified circulatory system (2 sources) Residual Other general symptoms and signs ; Episodic Doctor codes; Translations: [ - Flu-like symptoms Migration unclassified R68.89] (1 source) Procedures Date Procedure Procedure Detail Performing Cl inician Start: Ketorolac YANY BOND 08-12-2018 tromethamine inj Other Phone: Start: Therapeutic YANY BOND 08-12-2018 prophylactic/dx Other Phone: injection subq/im Start: Low cervical ANTONY JARAMILLO MD 03-03-2015 section Low cervical ANTONY JARAMILLO MD section Results Test Name Value Interpreta Reference Facilit Date tion Range y Time not yet categorized on 2019-08-10 Control + Invalid Communi Interpreta ty tion Code [facility] ([id number]) Exp date 2021-09-03 Invalid Communi Interpreta ty tion Code [facility] ([id number]) Lot # [id number] Invalid Communi Interpreta ty tion Code [facility] ([id number]) not yet categorized on 2019-06-11 CLINICAL Normal Communi INFORMATION: [facility] ([id number]) COMMENT Invalid Communi Interpreta ty tion Code [facility] ([id number]) Date of previous Normal Communi biopsy ty [facility] (34861) Date of previous PAP Normal Communi smear ty [facility] (37604) Last menstrual Normal Communi period start date ty [facility] (78021) laboratory on 2019-06-11 Air Table Operator Cyto Normal Communi stain Nom (Cvx/Vag) ty [ID] [facility] (63652) Microscopic Normal Communi observation Cyto ty stain Nom (Cvx) [facility] ([id number]) Specimen source Cyto Endocervix Normal Communi stain Nom (Cvx/Vag) ty [facility] (35117) Statement of Normal Communi adequacy Cyto stain ty (Cvx/Vag) [Interp] [facility] (12469) laboratory on 2019-01-21 Albumin [Mass/Vol] 4.4 g/dL Normal 3.6-5.1 Communi g/dL [facility] (22005) Albumin/Globulin 1.8 {ratio} Normal 1.0-2.5 Communi [Mass ratio] (calc) [facility] (10518) ALP [Catalytic 121 U/L High 33-115 U/L Communi activity/Vol] [facility] (15296) ALT [Catalytic 29 U/L Normal 6-29 U/L Communi activity/Vol] [facility] (49970) AST [Catalytic 31 U/L High 10-30 U/L Communi activity/Vol] [facility] (01418) Basophils (Bld) 0.039 10*3/uL Normal 0-200 Communi [#/Vol] cells/uL [facility] (39929) Basophils/100 WBC 0.6 % Normal % Communi (Bld) [facility] (11707) Bilirubin [Mass/Vol] 0.2 mg/dL Normal 0.2-1.2 Commu ni mg/dL [facility] (76919) Calcium [Mass/Vol] 9.2 mg/dL Normal 8.6-10.2 Communi mg/dL [facility] (89039) Chloride [Moles/Vol] 105 mmol/L Normal 98-110 Commu ni mmol/L [facility] (61827) CO2 [Moles/Vol] 25 mmol/L Normal 20-32 Communi mmol/L [facility] (18119) Creatinine 0.68 mg/dL Normal 0.50-1.10 Communi [Mass/Vol] mg/dL [facility] (94392) Eosinophils (Bld) 0.26 10*3/uL Normal 15-500 Communi [#/Vol] cells/uL [facility] (05676) Eosinophils/100 WBC 4.0 % Normal % Commun i (Bld) [facility] (25149) Erythrocyte 13.2 % Normal 11.0-15.0 Communi distribution width % ty (RBC) [Ratio] [facility] (22357) GFR/1.73 sq 129 mL/min/{1.73_m2} Normal > OR = 60 Commu ni M.predicted among mL/min/1.7 ty blacks MDRD 3m2 Health (S/P/Bld) [Vol Center rate/Area] [facility] (27433) GFR/1.73 sq 111 mL/min/{1.73_m2} Normal > OR = 60 Commu ni M.predicted MDRD mL/min/1.7 ty (S/P/Bld) [Vol 3m2 Health rate/Area] [facility] (93513) Globulin (S) 2.5 g/dL Normal 1.9-3.7 Communi [Mass/Vol] g/dL ty (calc) [facility] (90105) Glucose [Mass/Vol] 92 mg/dL Normal 65-99 Communi mg/dL ty [facility] (29676) Hematocrit (Bld) 35.9 % Normal 35.0-45.0 Communi [Volume fraction] % ty [facility] (70088) Hemoglobin (Bld) 11.7 g/dL Normal 11.7-15.5 Communi [Mass/Vol] g/dL ty [facility] (04507) Lymphocytes (Bld) 1.567 10*3/uL Normal 850-3900 Commun i [#/Vol] cells/uL ty [facility] (65327) Lymphocytes/100 WBC 24.1 % Normal % Commun i (Bld) ty [facility] (34101) MCH (RBC) [Entitic 29.0 pg Normal 27.0-33.0 Communi mass] pg ty [facility] (18311) MCHC (RBC) 32.6 g/dL Normal 32.0-36.0 Communi [Mass/Vol] g/dL ty [facility] (15090) MCV (RBC) [Entitic 88.9 fL Normal 80.0-100.0 Communi vol] fL ty [facility] (04096) Monocytes (Bld) 0.481 10*3/uL Normal 200-950 Communi [#/Vol] cells/uL ty [facility] (27806) Monocytes/100 WBC 7.4 % Normal % Communi (Bld) ty [facility] (34715) Neutrophils (Bld) 4.154 10*3/uL Normal 9411-8962 Commun i [#/Vol] cells/uL ty [facility] (70930) Neutrophils/100 WBC 63.9 % Normal % Commun i (Bld) [facility] (63941) Platelet mean volume 10.4 fL Normal 7.5-12.5 Commu ni (Bld) [Entitic vol] fL [facility] (15544) Platelets (Bld) 332 10*3/uL Normal 140-400 Communi [#/Vol] Thousand/u ty L [facility] (90016) Potassium 4.3 mmol/L Normal 3.5-5.3 Communi [Moles/Vol] mmol/L ty [facility] (10171) Protein [Mass/Vol] 6.9 g/dL Normal 6.1-8.1 Communi g/dL ty [facility] (76914) RBC (Bld) [#/Vol] 4.04 10*6/uL Normal 3.80-5.10 Communi Million/uL ty [facility] (45739) Sodium [Moles/Vol] 140 mmol/L Normal 135-146 Communi mmol/L ty [facility] (32134) TSH Qn 1.01 m[IU]/L Normal mIU/L Communi ty [facility] (92337) Urea nitrogen 12 mg/dL Normal 7-25 mg/dL Communi [Mass/Vol] ty [facility] (56966) Urea NOT APPLICABLE Invalid 6-22 Communi nitrogen/Creatinine Interpreta (calc) ty [Mass ratio] tion Code [facility] ([id number]) WBC (Bld) [#/Vol] 6.5 10*3/uL Normal 3.8-10.8 Communi Thousand/u ty L [facility] ([id number]) laboratory on 2017-10-29 25-hydroxyvitamin D3 26 ng/mL Low 30-100 Not [Mass/Vol] ng/mL [facility] (03610) Albumin [Mass/Vol] 4.7 g/dL Normal 3.6-5.1 Not g/dL [facility] (91098) Albumin/Globulin 1.7 {ratio} Normal 1.0-2.5 Not [Mass ratio] (calc) [facility] (83903) ALP [Catalytic 81 U/L Normal 33-115 U/L Not activity/Vol] [facility] (56385) ALT [Catalytic 19 U/L Normal 6-29 U/L Not activity/Vol] [facility] (28550) AST [Catalytic 18 U/L Normal 10-30 U/L Not activity/Vol] [facility] (34519) Basophils (Bld) 0.031 10*3/uL Normal 0-200 Not [#/Vol] cells/uL [facility] (14785) Basophils/100 WBC 0.6 % Normal Not (Bld) [facility] (62269) Bilirubin [Mass/Vol] 0.4 mg/dL Normal 0.2-1.2 Not mg/dL [facility] (92625) Calcium [Mass/Vol] 9.7 mg/dL Normal 8.6-10.2 Not mg/dL [facility] (24370) Chloride [Moles/Vol] 103 mmol/L Normal 98-110 Not mmol/L [facility] (73793) CO2 [Moles/Vol] 24 mmol/L Normal 20-31 Not mmol/L [facility] (40456) Cobalamin (Vitamin 347 pg/mL Normal 200-1100 Not B12) [Mass/Vol] pg/mL [facility] (18233) Creatinine 0.68 mg/dL Normal 0.50-1.10 Not [Mass/Vol] mg/dL [facility] (24812) Eosinophils (Bld) 0.041 10*3/uL Normal 15-500 Not [#/Vol] cells/uL [facility] (15358) Eosinophils/100 WBC 0.8 % Normal Not (Bld) [facility] (56821) Erythrocyte 12.5 % Normal 11.0-15.0 Not distribution width % [facility] (RBC) [Ratio] le () Ferritin [Mass/Vol] 14 ng/mL Normal 10-154 Not ng/mL [facility] (09131) GFR/1.73 sq 130 mL/min/{1.73_m2} Normal > OR = 60 Not M.predicted among mL/min/1.7 [facility] blacks MDRD 3m2 le (S/P/Bld) [Vol (74237) rate/Area] GFR/1.73 sq 112 mL/min/{1.73_m2} Normal > OR = 60 Not M.predicted MDRD mL/min/1.7 [facility] (S/P/Bld) [Vol 3m2 le rate/Area] (61847) Globulin (S) 2.7 g/dL Normal 1.9-3.7 Not [Mass/Vol] g/dL [facility] (calc) le () Glucose [Mass/Vol] 83 mg/dL Normal 65-99 Not mg/dL [facility] (99924) Hematocrit (Bld) 41.6 % Normal 35.0-45.0 Not [Volume fraction] % [facility] (11315) Hemoglobin (Bld) 13.4 g/dL Normal 11.7-15.5 Not [Mass/Vol] g/dL [facility] (68335) Lymphocytes (Bld) 1.433 10*3/uL Normal 850-3900 Not [#/Vol] cells/uL [facility] (56118) Lymphocytes/100 WBC 28.1 % Normal Not (Bld) [facility] (60131) MCH (RBC) [Entitic 28.7 pg Normal 27.0-33.0 Not mass] pg [facility] (75774) MCHC (RBC) 32.2 g/dL Normal 32.0-36.0 Not [Mass/Vol] g/dL [facility] (60709) MCV (RBC) [Entitic 89.1 fL Normal 80.0-100.0 Not vol] fL [facility] (74772) Monocytes (Bld) 0.464 10*3/uL Normal 200-950 Not [#/Vol] cells/uL [facility] (63821) Monocytes/100 WBC 9.1 % Normal Not (Bld) [facility] (29365) Neutrophils (Bld) 3.131 10*3/uL Normal 8996-2933 Not [#/Vol] cells/uL [facility] (12201) Neutrophils/100 WBC 61.4 % Normal Not (Bld) [facility] (07347) Platelet mean volume 10.0 fL Normal 7.5-12.5 Not (Bld) [Entitic vol] fL [facility] (52621) Platelets (Bld) 259 10*3/uL Normal 140-400 Not [#/Vol] Thousand/u [facility] (07209) Potassium 4.7 mmol/L Normal 3.5-5.3 Not [Moles/Vol] mmol/L [facility] (15530) Protein [Mass/Vol] 7.4 g/dL Normal 6.1-8.1 Not g/dL [facility] (14985) RBC (Bld) [#/Vol] 4.67 10*6/uL Normal 3.80-5.10 Not Million/uL [facility] (57891) Sodium [Moles/Vol] 138 mmol/L Normal 135-146 Not mmol/L [facility] (69491) TSH Qn 1.26 m[IU]/L Normal [facility] (68310) Urea nitrogen 12 mg/dL Normal 7-25 mg/dL Not [Mass/Vol] [facility] (57678) Urea NOT APPLICABLE Invalid 6- Not nitrogen/Creatinine Interpreta (calc) [facility]ail[facility] [Mass ratio] tion Code le () WBC (Bld) [#/Vol] 5.1 10*3/uL Normal 3.8-10.8 Not Thousand/u [facility] (28328) not yet categorized on 2017-06-16 . 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 Invalid Not observation Other Interpreta [facility] 017 stain Nom (Unsp tion Code le 13:42-0 spec) (09289) 400 Statement of Comment Invalid Not adequacy Cyto stain Interpreta [facility] 017 (Cvx/Vag) [Interp] tion Code le 13:42-0 (09591) 400 laboratory on 2017-06-14 Bacteria identified Note Invalid Not Aer cx Nom (Genital Interpreta [facility] 017 specimen) tion Code le 09:41-0 (77258) 400 laboratory on 2017-03-10 25-hydroxyvitamin D 16.8 Low 30.0-100.0 Not -2 [Mass/Vol] ng/mL [facility] 017 le 13:10-0 (96121) 400 laboratory on 2017-03-08 Albumin [Mass/Vol] 4.2 g/dL Invalid 3.5-5.5 Not 05-2 0-2 Interpreta g/dL [facility] 017 tion Code le 09:22-0 (20844) 400 Albumin/Globulin 1.7 {ratio} Invalid 1.2-2.2 Not 05-2 0-2 [Mass ratio] Interpreta [facility] 017 tion Code le 09:22-0 (13447) 400 ALP [Catalytic 74 U/L Invalid 39-117 Not 05-20-2 activity/Vol] Interpreta IU/L [facility] 017 tion Code le 09:22-0 (36033) 400 ALT [Catalytic 25 U/L Invalid 0-32 IU/L Not 05-20-2 activity/Vol] Interpreta [facility] 017 tion Code le 09:22-0 (84784) 400 AST [Catalytic 26 U/L Invalid 0-40 IU/L Not 05-20-2 activity/Vol] Interpreta [facility] 017 tion Code le 09:22-0 (70565) 400 Basophils (Bld) 0.0 10*3/uL Invalid 0.0-0.2 Not 05-20 -2 [#/Vol] Interpreta x10E3/uL [facility] 017 tion Code le 08:09-0 (05844) 400 Basophils/100 WBC 0 % Invalid % Not 05-20 -2 (Bld) Interpreta [facility] 017 tion Code le 08:09-0 (74572) 400 Bilirubin [Mass/Vol] 0.3 mg/dL Invalid 0.0-1.2 Not 20-2 Interpreta mg/dL [facility] 017 tion Code le 09:22-0 (62235) 400 Calcium [Mass/Vol] 9.2 mg/dL Invalid 8.7-10.2 Not 05-2 0-2 Interpreta mg/dL [facility] 017 tion Code le 09:22-0 (70200) 400 Chloride [Moles/Vol] 103 mmol/L Invalid 96-106 Not 0 -20-2 Interpreta mmol/L [facility] 017 tion Code le 09:22-0 (46480) 400 Cholesterol 174 mg/dL Invalid 100-199 Not 20-2 [Mass/Vol] Interpreta mg/dL [facility] 017 tion Code le 09:22-0 (03250) 400 Cholesterol in HDL 68 mg/dL Invalid >39 mg/dL Not 05-2 0-2 [Mass/Vol] Interpreta [facility] 017 tion Code le 09:22-0 (95573) 400 Cholesterol in LDL 93 mg/dL Invalid 0-99 mg/dL Not -2 [Mass/Vol] Interpreta [facility] 017 tion Code le 09:22-0 (91897) 400 Cholesterol in VLDL 13 mg/dL Invalid 5-40 mg/dL Not 20-2 [Mass/Vol] Interpreta [facility] 017 tion Code le 09:22-0 (28168) 400 CO2 [Moles/Vol] 24 mmol/L Invalid 18-29 Not 03-08-2 Interpreta mmol/L [facility] 017 tion Code le 09:22-0 (48263) 400 Cobalamin (Vitamin 241 pg/mL Invalid 211-946 Not 05-2 0-2 B12) [Mass/Vol] Interpreta pg/mL [facility] 017 tion Code le 11:53-0 (73552) 400 Creatinine 0.69 mg/dL Invalid 0.57-1.00 Not 03-08-2 [Mass/Vol] Interpreta mg/dL [facility] 017 tion Code le 09:22-0 (54445) 400 Eosinophils (Bld) 0.1 10*3/uL Invalid 0.0-0.4 Not -2 [#/Vol] Interpreta x10E3/uL [facility] 017 tion Code le 08:0 (18134) 400 Eosinophils/100 WBC 2 % Invalid % Not 05- 20-2 (Bld) Interpreta [facility] 017 tion Code le 08:0 (06162) 400 Erythrocyte 14.4 % Invalid 12.3-15.4 Not -20-2 distribution width Interpreta % [facility] 017 (RBC) [Ratio] tion Code le 08:0 (96623) 400 GFR/1.73 sq 130 mL/min/{1.73_m2} Invalid >59 Not 05-20-2 M.predicted among Interpreta mL/min/1.7 [facility] 017 blacks MDRD tion Code 3 le 09:22-0 (S/P/Bld) [Vol (21749) 400 rate/Area] GFR/1.73 sq 112 mL/min/{1.73_m2} Invalid >59 Not 05-20-2 M.predicted among Interpreta mL/min/1.7 [facility] 017 non-blacks MDRD tion Code 3 le 09:22-0 (S/P/Bld) [Vol (94538) 400 rate/Area] Globulin (S) 2.5 g/dL Invalid 1.5-4.5 Not 05-20-2 [Mass/Vol] Interpreta g/dL [facility] 017 tion Code le 09:0 (59851) 400 Glucose [Mass/Vol] 92 mg/dL Invalid 65-99 Not 05-2 0-2 Interpreta mg/dL [facility] 017 tion Code le 09:-0 (56898) 400 Hematocrit (Bld) 33.8 % Low 34.0-46.6 Not 05-20- 2 [Volume fraction] % [facility] 017 le 08:-0 (68540) 400 Hemoglobin (Bld) 10.6 g/dL Low 11.1-15.9 Not 05-20- 2 [Mass/Vol] g/dL [facility] 017 le 08:-0 (52023) 400 Immature 0.0 10*3/uL Invalid 0.0-0.1 Not 05-20-2 granulocytes (Bld) Interpreta x10E3/uL [facility] 017 [#/Vol] tion Code le 08:09-0 (18112) 400 Immature 0 % Invalid % Not 05-20-2 granulocytes/100 WBC Interpreta [facility] 017 (Bld) tion Code le 08:09-0 (91183) 400 Lymphocytes (Bld) 1.4 10*3/uL Invalid 0.7-3.1 Not 05- 20-2 [#/Vol] Interpreta x10E3/uL [facility] 017 tion Code le 08:09-0 (44059) 400 Lymphocytes/100 WBC 38 % Invalid % Not 05- 20-2 (Bld) Interpreta [facility] 017 tion Code le 08:09-0 (05488) 400 MCH (RBC) [Entitic 26.9 pg Invalid 26.6-33.0 Not 05-2 0-2 mass] Interpreta pg [facility] 017 tion Code le 08:09-0 (51535) 400 MCHC (RBC) 31.4 g/dL Low 31.5-35.7 Not 05-20-2 [Mass/Vol] g/dL [facility] 017 le 08:09-0 (79074) 400 MCV (RBC) [Entitic 86 fL Invalid 79-97 fL Not 05-2 0-2 vol] Interpreta [facility] 017 tion Code le 08:09-0 (22897) 400 Monocytes (Bld) 0.3 10*3/uL Invalid 0.1-0.9 Not 05-20 -2 [#/Vol] Interpreta x10E3/uL [facility] 017 tion Code le 08:09-0 (38683) 400 Monocytes/100 WBC 9 % Invalid % Not 05-20 -2 (Bld) Interpreta [facility] 017 tion Code le 08:09-0 (76079) 400 Neutrophils (Bld) 1.9 10*3/uL Invalid 1.4-7.0 Not 05- 20-2 [#/Vol] Interpreta x10E3/uL [facility] 017 tion Code le 08:09-0 (33887) 400 Neutrophils/100 WBC 51 % Invalid % Not 05- 20-2 (Bld) Interpreta [facility] 017 tion Code le 08:09-0 (57714) 400 Platelets (Bld) 237 10*3/uL Invalid 150-379 Not 05-20 -2 [#/Vol] Interpreta x10E3/uL [facility] 017 tion Code le 08:09-0 (03368) 400 Potassium 4.1 mmol/L Invalid 3.5-5.2 Not 20-2 [Moles/Vol] Interpreta mmol/L [facility] 017 tion Code le 09:22-0 (56006) 400 Protein [Mass/Vol] 6.7 g/dL Invalid 6.0-8.5 Not 05-2 0-2 Interpreta g/dL [facility] 017 tion Code le 09:0 (69838) 400 RBC (Bld) [#/Vol] 3.94 10*6/uL Invalid 3.77-5.28 Not - Interpreta x10E6/uL [facility] 017 tion Code le 08:090 (90818) 400 Sodium [Moles/Vol] 141 mmol/L Invalid 134-144 Not Interpreta mmol/L [facility] 017 tion Code le 09:0 (68283) 400 Triglyceride 64 mg/dL Invalid 0-149 Not [Mass/Vol] Interpreta mg/dL [facility] 017 tion Code le 09:0 (39445) 400 TSH Qn 1.280 Invalid 0.450-4.50 Not 03-08- Interpreta 0 uIU/mL [facility] 017 tion Code le 08:02-0 (20442) 400 Urea nitrogen 9 mg/dL Invalid 6-20 mg/dL Not [Mass/Vol] Interpreta [facility] 017 tion Code le 09:-0 (63766) 400 Urea 13 mg/mg Invalid 9-23 Not nitrogen/Creatinine Interpreta [facility] 017 [Mass ratio] tion Code le 09:0 (36358) 400 WBC (Bld) [#/Vol] 3.7 10*3/uL Invalid 3.4-10.8 Not -2 Interpreta x10E3/uL [facility] 017 tion Code le 08:09-0 (25681) 400 Social History The data below is from unstructured sources History Response Recorde d Date/Time Hx Family Cancer Y MAT GDMA MELANOMA 04/15/13 6:09pm Hx Family Lung Cancer Y MAT GDMA 04/15/13 6:09pm Hx Family Colorectal Cancer Y MAT GDPA 04/15/13 6:09pm Hx Family Cardiac Disorders Y 04/15/13 6:09pm Hx Family Hypertension Y PAT'S MOM 04/15/13 6:09pm Hx Family Myocardial Infarction Y PT 'S DAD, JOSUE CARSONA, MAT GDPA 04/15/13 6:09pm History Response Recorde d Date/Time Alcohol Use Denies Use 0 04/15/13 6:01pm Recreational Drug Use N 04/15/13 6:01pm Recent Foreign Travel N 04/15/13 6:01pm Recent Infectious Disease Exposure N 04/15/13 6:01pm Hospitalization with Isolation Denies 04/17/13 4:43pm Sexually Transmitted Disease N 04/15/13 6:01pm HIV/AIDS N 04/15/13 6:01 pm Vital Signs Date Time Vital Sign Value Performing Clinician Facil it 09-09-2018 Body height 165.1 cm [facility] 15:40-0500 Other Phone: [facility] [place] ([id number]) 09-09-2018 Body mass index 32.45 kg/m2 [facility] 15:40-0500 (BMI) [Ratio] Other Phone: [facility] [place] ([id number]) 09-09-2018 Body temperature 98.5 [degF] [facility] 15:40-0500 Other Phone: [facility] ([id number]) 09-09-2018 Body weight 88.45 kg [facility] 15:40-0500 Other Phone: [facility] ([id number]) 09-09-2018 SaO2% (BldA) [Mass 98 % [facility] [employer] 15:40-0500 fraction] Other Phone: [facility] [place] ([id number]) 08-17-2018 Body height 165.1 cm [facility] 09:00-0400 Other Phone: [facility] ([id number]) 08-17-2018 Body mass index 31.93 kg/m2 [facility] 09:00-0400 (BMI) [Ratio] Other Phone: [facility] [place] ([id number]) 08-17-2018 Body temperature 98.9 [degF] [facility] 09:000400 Other Phone: [facility] ([id number]) 08-17-2018 Body weight 87.05 kg [facility] 09:000400 Other Phone: [facility] ([id number]) 04-09-2018 Body height 165.1 cm [facility] 12:20-0400 Other Phone: [phone] [place] ([id number]) 04-09-2018 Body mass index 30.88 kg/m2 [facility] 12:-0400 (BMI) [Ratio] Other Phone: [facility] [place] ([id number]) 04-09-2018 Body temperature 98.4 [degF] [facility] 12:20-0400 Other Phone: [facility] ([id number]) 04-09-2018 Body weight 84.19 kg [facility] 12:20-0400 Other Phone: [facility] ([id number]) Functional Status The data below is from unstructured sourcesNo functional status information available.No functional status results.No functional status results.No functional status results.No functional status results. Mental Status No Information Clinical Note 2017-06-16 Note Date & Note Facility Type 06-16-2017 Comment (L) The Pap smear is a screening test Not Available Note designed to aid in the detection of~pre malignant and malignant (68422) conditions of the uterine cervix. It is not a~diagnostic procedure and should not be used as the sole mean s of detecting~cervical cancer. Both false-positive and false-n egative reports do occur.~ History general Narrative - Reported Note Date & Note Facility Type History general Narrative - Reported Type Medical endometriosis History Surgical section x's 5 History Surgical gastric bypass History Surgical tubal ligation History Surgical total hysterectomy History Hospitalizatio post surgeries n History [facility] ([id number]) Advance Directives Directive Response Recor ded Date/Time Advance Directives No 05 /29/17 8:10am Health Care Power of International Coordinator No 03/17/17 8:10am Organ Donor Yes 03/17/17 8:10am Resuscitation Status Full Code 03/17/17 8:10am Directive Response Recor ded Date/Time Advance Directives No 2:20pm Health Care Power of International Coordinator No 03/03/15 2:20pm Organ Donor Yes 03/03/15 2:20pm Resuscitation Status Full Code 03/03/15 2:20pm Directive Response Recor ded Date/Time Advance Directives No 8:02pm Health Care Power of International Coordinator No 01/26/15 8:02pm Organ Donor Yes 01/26/15 8:02pm Resuscitation Status Full Code 01/26/15 8:02pm Directive Response Recor ded Date Advance Directives N 5:58pm Health Care Power of International Coordinator N 04/15/13 5:58pm Organ Donor Y 04/15/13 5 :58pm Discharge Instructions No hospital discharge instruction information available.No hospital discharge instructions. Additional Source Comments This clinical document has been generated using [employer] software that has been certified by the Office of the National Coordinator for Health Information Technology (ONC 15.99.04.3023.Diam.31.00.0.676954) and the National Committee for Regulatory Affairs Analyst (NCQA, as an eMeasure certified technology). FOR RECORDS PERTAINING TO PATIENTS WHO ARE OR HAVE BEEN ENROLLED IN A CHEMICAL D EPENDENCY/SUBSTANCE ABUSE PROGRAM, SOME INFORMATION MAY BE OMITTED. This clinica l summary was aggregated from multiple sources. Caution should be exercised in using it in the provision of clinical care. This summary normalizes information from multiple sources, and as a consequence, information in this document may ma terially change the coding, format and clinical context of patient data. In nayan tion, data may be omitted in some cases. CLINICAL DECISIONS SHOULD BE BASED ON T HE PRIMARY CLINICAL RECORDS. [employer] provides no warranty or guara ntee of the accuracy or completeness of information in this document.The followi ng information is based on time limited clinical information UNRECOGNIZED CONTENT PROVIDED BELOW FOR UNRECOGNIZED SECTION REASON FOR VISIT Sudafed RequestMedication refill requestControlled Med RefillControlled Med Refi ll/Medication refill requestRequests return callNeeds Injectioninjection toradol approved by Maximilian. Gail managment. [facility] RNCold symptoms, PT report s she has a lot of congestion, denies nausea and diarrhea. -Shravan WHITMORE, PT repo rts her left big toe has been hurting as well -Shravan WHITMORE
--- OUTSIDE RECORDS SUMMARY | 2020-05-23 13:02 | XMS REPORT | Continuity of Care Document ---
Author Organization Unknown Address Unknown Phone Unavailable Allergies Active Description Code Type Severity Reaction Onset Reported/Identified Relationship to Patient Clinical Status Yes NKANo Known Allergies NKA Miscellaneous Allergy Unknown N/A 04/29/2008 Yes povidone-iodine [id number] D rug Allergy Mild RASH 03/03/2015 Yes Soap [id number] Drug Allergy Mild RASH 03/03/2015 Yes oxycodone [id number] Drug Allergy Unknown itching/gas tami 11/09/2019 Medications There is no data. Problems Date Dx Coded Attending Type Code Diagnosis Diagnosed By 03/27/2012 Ot 614.6 03/27/2012 Ot 617.0 03/27/2012 Ot 617.1 03/27/2012 Ot 617.3 03/27/2012 Ot 617.5 03/27/2012 Ot 620.0 03/27/2012 Ot 621.0 03/27/2012 Ot 621.8 03/27/2012 Ot 626.8 03/27/2012 Ot 628.2 04/17/2013 ANTONY JARAMILLO MD Ot 654.21 04/17/2013 ANTONY JARAMILLO MD Ot 657.01 04/17/2013 ANTONY JARAMILLO MD Ot 663.31 04/17/2013 ANTONY JARAMILLO MD Ot V06.1 04/17/2013 ANTONY JARAMILLO MD Ot V07.2 04/17/2013 ANTONY JARAMILLO MD Ot V27.0 11/01/2013 CLAUDIA MCKEON DO V04.81 FLU SHOT 01/26/2015 ANTONY JARAMILLO MD Ot 644.03 THRT IVANA LABOR-ANTEPART 03/05/2015 ANTONY JARAMILLO MD Ot 644.21 EARLY ONSET DELIVERY-DEL 03/05/2015 ANTONY JARAMILLO MD Ot 654.21 PREV DELIVRY W/ OR W/O MENT ANT 03/05/2015 ELLA ANDERSON, ANTONY Gleason Ot V06.1 [id number], COMBINED [ 03/05/2015 ANTONY JARAMILLO MD Ot V27.0 DELIVER-SINGLE LIVEBORN 03/17/2017 ZAC CHAMBERS MD Ot M25.551 PAIN IN RIGHT HIP 03/17/2017 ZAC CHAMBERS MD Ot M46.1 SACROILIITIS, NOT ELSEWHERE CLASSIFIED 03/20/2017 ZAC CHAMBERS MD Ot M25.551 PAIN IN RIGHT HIP 03/20/2017 ZAC CHAMBERS MD Ot M46.1 SACROILIITIS, NOT ELSEWHERE CLASSIFIED 10/16/2019 JIMMY THACKER MD Ot K21. 9 GASTRO-ESOPHAGEAL REFLUX DISEASE WITHOUT 10/16/2019 JIMMY THACKER MD Ot M54. 5 LOW BACK PAIN 10/16/2019 JIMMY THACKER MD Ot N94. 0 MITTELSCHMERZ 10/16/2019 JIMMY THACKER MD Ot Z79. 52 SNF (CURRENT) USE OF SYSTEMIC STER 10/16/2019 JIMMY THACKER MD Ot Z88. 8 ALLERGY STATUS TO OTH DRUG/MEDS/BIOL SUB 10/16/2019 JIMMY THACKER MD Ot Z98. 51 TUBAL LIGATION STATUS 10/17/2019 KP HARRIS Ot K21.9 GASTRO-ESOPHAGEAL REFLUX DISEASE WITHOUT 10/17/2019 KP HARRIS Ot M54.16 RADICULOPATHY, LUMBAR REGION 10/17/2019 KP HARRIS Ot M54.9 DORSALGIA, UNSPECIFIED 10/17/2019 KP HARRIS Ot N94.0 MITTELSCHMERZ 10/17/2019 KP HARRIS Ot Z79.52 HVAC/R INSTRUCTOR (CURRENT) USE OF SYSTEMIC STER 10/17/2019 KP HARRIS Ot Z88.8 ALLERGY STATUS TO OTH DRUG/MEDS/BIOL SUB 10/17/2019 KP HARRIS Ot Z98.51 TUBAL LIGATION STATUS 10/21/2019 JIMMY THACKER MD Ot K21. 9 GASTRO-ESOPHAGEAL REFLUX DISEASE WITHOUT 10/21/2019 KEDAR ANDERSON, JIMMY J Ot M54. 5 LOW BACK PAIN 10/21/2019 KEDAR ANDERSON, JIMMY [place] Ot N94. 0 MITTELSCHMERZ 10/21/2019 KEDAR ANDERSON, JIMMY [place] Ot Z79. 52 HVAC/R INSTRUCTOR (CURRENT) USE OF SYSTEMIC STER 10/21/2019 KEDAR ANDERSON, JIMMY [place] Ot Z88. 8 ALLERGY STATUS TO OTH DRUG/MEDS/BIOL SUB 10/21/2019 KEDAR ANDERSON, JIMMY [place] Ot Z98. 51 TUBAL LIGATION STATUS 10/21/2019 AGGIE LIGHT, KP L Ot K21.9 GASTRO-ESOPHAGEAL REFLUX DISEASE WITHOUT 10/21/2019 AGGIE LIGHT, KP L Ot M54.16 RADICULOPATHY, LUMBAR REGION 10/21/2019 AGGIE LIGHT, KP L Ot M54.9 DORSALGIA, UNSPECIFIED 10/21/2019 AGGIE LIGHT, KP L Ot N94.0 MITTELSCHMERZ 10/21/2019 AGGIE LIGHT, KP L Ot Z79.52 SNF (CURRENT) USE OF SYSTEMIC STER 10/21/2019 AGGIE LIGHT, KP L Ot Z88.8 ALLERGY STATUS TO OTH DRUG/MEDS/BIOL SUB 10/21/2019 AGGIE LIGHT, KP L Ot Z98.51 TUBAL LIGATION STATUS 11/05/2019 AGGIE LIGHT, KP L Ot K21.9 GASTRO-ESOPHAGEAL REFLUX DISEASE WITHOUT 11/05/2019 AGGIE LIGHT, KP L Ot M54.16 RADICULOPATHY, LUMBAR REGION 11/05/2019 AGGIE LIGHT, KP L Ot M54.9 DORSALGIA, UNSPECIFIED 11/05/2019 AGGIE LIGHT, KP L Ot N94.0 MITTELSCHMERZ 11/05/2019 AGGIE LIGHT, KP L Ot Z79.52 HVAC/R INSTRUCTOR (CURRENT) USE OF SYSTEMIC STER 11/05/2019 AGGIE LIGHT, KP L Ot Z88.8 ALLERGY STATUS TO OTH DRUG/MEDS/BIOL SUB 11/05/2019 AGGIE LIGHT, KP L Ot Z98.51 TUBAL LIGATION STATUS 11/09/2019 ANTONY JARAMILLO MD Ot Z01.818 ENCOUNTER FOR OTHER PREPROCEDURAL EXAMIN 11/10/2019 ANTONY JARAMILLO MD, Ot Z01.818 ENCOUNTER FOR OTHER PREPROCEDURAL EXAMIN 11/18/2019 ANTONY JARAMILLO MD, Ot G43.909 MIGRAINE, UNSP, NOT INTRACTABLE, WITHOUT 11/18/2019 ANTONY JARAMILLO MD, Ot K21.9 GASTRO-ESOPHAGEAL REFLUX DISEASE WITHOUT 11/18/2019 ANTONY JARAMILLO MD, Ot K66.0 PERITONEAL ADHESIONS (POSTPROCEDURAL) (P 11/18/2019 ANTONY JARAMILLO MD, Ot N80.0 ENDOMETRIOSIS OF UTERUS 11/18/2019 ANTONY JARAMILLO MD, Ot N80.1 ENDOMETRIOSIS OF OVARY 11/18/2019 ANTONY JARAMILLO MD, Ot N93.9 ABNORMAL UTERINE AND VAGINAL BLEEDING, U 11/18/2019 ANTONY JARAMILLO MD, Ot Z79.891 HVAC/R INSTRUCTOR (CURRENT) USE OF OPIATE ANALGE 11/18/2019 ANTONY JARAMILLO MD, Ot Z79.899 OTHER HVAC/R INSTRUCTOR (CURRENT) DRUG THERAPY 11/18/2019 ANTONY JARAMILLO MD, Ot Z82.49 FAMILY HX OF ISCHEM HEART DIS AND OTH DI 11/18/2019 ANTONY JARAMILLO MD, Ot Z83.3 FAMILY HISTORY OF DIABETES MELLITUS 11/18/2019 ANTONY JARAMILLO MD, Ot Z88.8 ALLERGY STATUS TO OTH DRUG/MEDS/BIOL SUB 11/23/2019 ANTONY JARAMILLO MD, Ot G43.909 MIGRAINE, UNSP, NOT INTRACTABLE, WITHOUT 11/23/2019 ANTONY JARAMILLO MD, Ot K21.9 GASTRO-ESOPHAGEAL REFLUX DISEASE WITHOUT 11/23/2019 ANTONY JARAMILLO MD, Ot K66.0 PERITONEAL ADHESIONS (POSTPROCEDURAL) (P 11/23/2019 ANTONY JARAMILLO MD, Ot N80.0 ENDOMETRIOSIS OF UTERUS 11/23/2019 ANTONY JARAMILLO MD, Ot N80.1 ENDOMETRIOSIS OF OVARY 11/23/2019 ANTONY JARAMILLO MD, Ot N93.9 ABNORMAL UTERINE AND VAGINAL BLEEDING, U 11/23/2019 ANTONY JARAMILLO MD, Ot Z79.891 HVAC/R INSTRUCTOR (CURRENT) USE OF OPIATE ANALGE 11/23/2019 ANTONY JARAMILLO MD, Ot Z79.899 OTHER HVAC/R INSTRUCTOR (CURRENT) DRUG THERAPY 11/23/2019 ANTONY JARAMILLO MD, Ot Z82.49 FAMILY HX OF ISCHEM HEART DIS AND OTH DI 11/23/2019 ANTONY JARAMILLO MD, Ot Z83.3 FAMILY HISTORY OF DIABETES MELLITUS 11/23/2019 ANTONY JARAMILLO MD, Ot Z88.8 ALLERGY STATUS TO OT DRUG/MEDS/BIOL SUB Procedures Code Description Performed By Per lashonda On 74.1 LOW C ERVICAL 03/03/2015 Results Test Result Range CBC With Differential/Platelet - 7 08:07 WBC 3.7 x10E3/uL 3.4-10.8 RBC 3.94 x10E6/uL 3.77-5.28 Hemoglobin 10.6 g/dL 11.1-15.9 Hematocrit 33.8 % 34.0-46.6 MCV 86 fL 79-97 MCH 26.9 pg 26.6-33.0 MCHC 31.4 g/dL 31.5-35.7 RDW 14.4 % 12.3-15.4 Platelets 237 x10E3/uL 150-379 Neutrophils 51 % Lymphs 38 % Monocytes 9 % Eos 2 % Basos 0 % Neutrophils (Absolute) 1.9 x10E3/uL 1.4- 7.0 Lymphs (Absolute) 1.4 x10E3/uL 0.7-3.1 Monocytes(Absolute) 0.3 x10E3/uL 0.1-0.9 Eos (Absolute) 0.1 x10E3/uL 0.0-0.4 Baso (Absolute) 0.0 x10E3/uL 0.0-0.2 Immature Granulocytes 0 % Immature Grans (Abs) 0.0 x10E3/uL 0.0-0. 1 Comp. Metabolic Panel (14) - 03/07/17 08 :07 Glucose, Serum 92 mg/dL 65-99 BUN 9 mg/dL 6-20 Creatinine, Serum 0.69 mg/dL 0.57-1.00 eGFR If NonAfricn Am 112 mL/min/1.73 >59 eGFR If Africn Am 130 mL/min/1.73 >5 9 BUN/Creatinine Ratio 13 9-23 Sodium, Serum 141 mmol/L 134-144 Potassium, Serum 4.1 mmol/L 3.5-5.2 Chloride, Serum 103 mmol/L 96-106 Carbon Dioxide, Total 24 mmol/L 18-29 Calcium, Serum 9.2 mg/dL 8.7-10.2 Protein, Total, Serum 6.7 g/dL 6.0-8.5 Albumin, Serum 4.2 g/dL 3.5-5.5 Globulin, Total 2.5 g/dL 1.5-4.5 A/G Ratio 1.7 1.2-2.2 Bilirubin, Total 0.3 mg/dL 0.0-1.2 Alkaline Phosphatase, S 74 IU/L 39-117 AST (SGOT) 26 IU/L 0-40 ALT (SGPT) 25 IU/L 0-32 Lipid Panel - 03/07/17 08:07 Cholesterol, Total 174 mg/dL 100-199 Triglycerides 64 mg/dL 0-149 HDL Cholesterol 68 mg/dL >39 VLDL Cholesterol Cristian 13 mg/dL 5-40 LDL Cholesterol Calc 93 mg/dL 0-99 TSH - 03/07/17 08:07 TSH 1.280 uIU/mL 0.450-4.500 Vitamin D, 25-Hydroxy - 03/07/17 08:07 Vitamin D, 25-Hydroxy 16.8 ng/mL 30.0-10 0.0 Vitamin B12 - 03/07/17 08:07 Vitamin B12 241 pg/mL [id number] PDF Report - 06/11/17 00:00 PDF Report1 LCLS NRG Genital Culture, Routine - 06/11/17 10:4 6 Genital Culture, Routine Note CMP - 10/29/17 11:03 GLUCOSE 83 mg/dL 65-99 UREA NITROGEN (BUN) 12 mg/dL 7-25 CREATININE 0.68 mg/dL 0.50-1.10 eGFR NON-AFR. GEORGIAN 112 mL/min/1.73m2 > OR = 60 eGFR 130 mL/min/1.73m2 > OR = 60 BUN/CREATININE RATIO NOT APPLICABLE (calc) 6-22 SODIUM 138 mmol/L 135-146 POTASSIUM 4.7 mmol/L 3.5-5.3 CHLORIDE 103 mmol/L 98-110 CARBON DIOXIDE 24 mmol/L 20-31 CALCIUM 9.7 mg/dL 8.6-10.2 PROTEIN, TOTAL 7.4 g/dL 6.1-8.1 ALBUMIN 4.7 g/dL 3.6-5.1 GLOBULIN 2.7 g/dL (calc) 1.9-3.7 ALBUMIN/GLOBULIN RATIO 1.7 (calc) 1.0-2. 5 BILIRUBIN, TOTAL 0.4 mg/dL 0.2-1.2 ALKALINE PHOSPHATASE 81 U/L 33-115 AST 18 U/L 10-30 ALT 19 U/L 6-29 CBC - 10/29/17 11:03 WHITE BLOOD CELL COUNT 5.1 Thousand/uL 3 .8-10.8 RED BLOOD CELL COUNT 4.67 Million/uL 3.8 0-5.10 HEMOGLOBIN 13.4 g/dL 11.7-15.5 HEMATOCRIT 41.6 % 35.0-45.0 MCV 89.1 fL 80.0-100.0 MCH 28.7 pg 27.0-33.0 MCHC 32.2 g/dL 32.0-36.0 RDW 12.5 % 11.0-15.0 PLATELET COUNT 259 Thousand/uL 140-400 MPV 10.0 fL 7.5-12.5 ABSOLUTE NEUTROPHILS 3131 cells/uL 1500- 7800 ABSOLUTE LYMPHOCYTES 1433 cells/uL 850-3 900 ABSOLUTE MONOCYTES 464 cells/uL 200-950 ABSOLUTE EOSINOPHILS 41 cells/uL 15-500 ABSOLUTE BASOPHILS 31 cells/uL 0-200 NEUTROPHILS 61.4 % NRG LYMPHOCYTES 28.1 % NRG MONOCYTES 9.1 % NRG EOSINOPHILS 0.8 % NRG BASOPHILS 0.6 % NRG FERRITIN, SERUM - 10/29/17 11:03 FERRITIN 14 ng/mL 10-154 TSH - 10/29/17 11:03 TSH 1.26 mIU/L NRG VITAMIN D, 25-H - 10/29/17 11:03 VITAMIN D,25-OH,TOTAL,IA 26 ng/mL 30-10 0 VITAMIN B12 - 10/29/17 11:03 VITAMIN B12 347 pg/mL 200-1100 - PANEL (PROFILE 1) - 07/10/18 11 :59 Creatinine 55.6 mg/dL > or = 20.0 pH 6.99 4.5 - 9.0 Oxidant NEGATIVE mcg/mL <200 Amphetamines NEGATIVE ng/mL <500 medMATCH Amphetamines CONSISTENT NRG Benzodiazepines NEGATIVE CONFIRMED ng/mL <100 Marijuana Metabolite NEGATIVE ng/mL <20 medMATCH Marijuana Metab CONSISTENT NRG Cocaine Metabolite NEGATIVE ng/mL <150 medMATCH Cocaine Metab CONSISTENT NRG Opiates NEGATIVE ng/mL <100 medMATCH Opiates CONSISTENT NRG Oxycodone NEGATIVE ng/mL <100 medMATCH Oxycodone CONSISTENT NRG COMMENT NRG Alphahydroxyalprazolam NEGATIVE ng/mL <25 medMATCH aOH alprazolam CONSISTENT NRG Alphahydroxymidazolam NEGATIVE ng/mL < 50 medMATCH aOH midazolam CONSISTENT NRG Alphahydroxytriazolam NEGATIVE ng/mL < 50 medMATCH aOH triazolam CONSISTENT NRG Aminoclonazepam NEGATIVE ng/mL <25 medMATCH Aminoclonazepam CONSISTENT NRG Hydroxyethylflurazepam NEGATIVE ng/mL <50 medMATCH OH,Et flurazepam CONSISTENT NR G Lorazepam NEGATIVE ng/mL <50 medMATCH Lorazepam CONSISTENT NRG Nordiazepam NEGATIVE ng/mL <50 medMATCH Nordiazepam CONSISTENT NRG Oxazepam NEGATIVE ng/mL <50 medMATCH Oxazepam CONSISTENT NRG Temazepam NEGATIVE ng/mL <50 medMATCH Temazepam CONSISTENT NRG Barbiturates NEGATIVE ng/mL <300 medMATCH Barbiturates CONSISTENT NRG Methadone Metabolite NEGATIVE ng/mL <100 medMATCH Methadone Metab CONSISTENT NRG Phencyclidine NEGATIVE ng/mL <25 medMATCH Phencyclidine CONSISTENT NRG CMP - 01/21/19 17:03 GLUCOSE 92 mg/dL 65-99 UREA NITROGEN (BUN) 12 mg/dL 7-25 CREATININE 0.68 mg/dL 0.50-1.10 eGFR NON-AFR. GEORGIAN 111 mL/min/1.73m2 > OR = 60 eGFR 129 mL/min/1.73m2 > OR = 60 BUN/CREATININE RATIO NOT APPLICABLE (calc) 6-22 SODIUM 140 mmol/L 135-146 POTASSIUM 4.3 mmol/L 3.5-5.3 CHLORIDE 105 mmol/L 98-110 CARBON DIOXIDE 25 mmol/L 20-32 CALCIUM 9.2 mg/dL 8.6-10.2 PROTEIN, TOTAL 6.9 g/dL 6.1-8.1 ALBUMIN 4.4 g/dL 3.6-5.1 GLOBULIN 2.5 g/dL (calc) 1.9-3.7 ALBUMIN/GLOBULIN RATIO 1.8 (calc) 1.0-2. 5 BILIRUBIN, TOTAL 0.2 mg/dL 0.2-1.2 ALKALINE PHOSPHATASE 121 U/L 33-115 AST 31 U/L 10-30 ALT 29 U/L 6-29 SUREPATH PAP RFX HPV mRNA E6/E7 - 11:15 CLINICAL INFORMATION: NRG LMP: NRG PREV. PAP: NRG PREV. BX: NRG SOURCE: [employer] NRG STATEMENT OF ADEQUACY: NRG INTERPRETATION/RESULT: NRG DEBURRER STRIP: NRG COMMENT NRG Complete blood count (CBC) with automate d white blood cell (WBC) differential - 11/17/19 10:45 Blood leukocytes automated count (number/volume) 3.8 10*3/uL 4.3-11.0 Blood erythrocytes automated count (number/volume) 4.28 10*6/uL 4.35-5.85 Venous blood hemoglobin measurement (mass/volume) 11.7 g/dL 11.5-16.0 Blood hematocrit (volume fraction) 39 % 35-52 Automated erythrocyte mean corpuscular volume 90 [ foz_us] 80-99 Automated erythrocyte mean corpuscular h emoglobin (mass per erythrocyte) 27 pg 25-34 Automated erythrocyte mean corpuscular h emoglobin concentration measurement (mass/volume) 30 g/dL 32-36 Automated erythrocyte distribution width ratio 13. 3 % 10.0- 14.5 Automated blood platelet count (count/volume) 280 10*3/uL 130-400 Automated blood platelet mean volume measurement 9.6 [foz_us] 7.4-10.4 Automated blood neutrophils/100 leukocytes 54 % 42-75 Automated blood lymphocytes/100 leukocytes 36 % 12-44 Blood monocytes/100 leukocytes 7 % 0-12 Automated blood eosinophils/100 leukocytes 2 % 0-10 Automated blood basophils/100 leukocytes 1 % 0-10 Blood neutrophils automated count (number/volume) 2.1 10*3 1.8-7.8 Blood lymphocytes automated count (number/volume) 1.4 10*3 1.0-4.0 Blood monocytes automated count (number/volume) 0. 3 10*3 0.0-1.0 Automated eosinophil count 0.1 10*3/uL 0 .0-0.3 Automated blood basophil count (count/volume) 0.0 10*3/uL 0.0-0.1 Blood type T Indirect antibody screen pa katie - 11/17/19 10:45 WRISTBAND NUMBER [id number] NRG ABO+Rh group ON NRG Blood group antibody screen NEGATIVE NR G Methicillin resistant Staphylococcus aur eus (MRSA) screening culture - 11/17/19 10:45 MRSA SCREEN RESULT MRSA ISOLATED NRG Encounters ACCT No. Visit Date/Time Discharge Status Pt. Type Provider Facility Loc./Unit Complaint [id number] 11/01/2013 16:22:00 11/01/2013 23:59: 59 CLS Outpatient LINDA CLAUDIA Bojorquez [id number] 11/17/2019 10:20:00 020 09:15:00 DIS Outpatient ANTONY JARAMILLO MD [facility] CHRONIC PELVIC PAIN,ABNORMAL UTERINE BLEEDING [id number] 11/09/2019 05:38:00 020 13:39:00 DIS Outpatient ANTONY JARAMILLO MD [facility] PREOP CHRONIC PELVIC PAIN,ABNORMAL UTERINE BLEEDING [id number] 10/17/2019 18:57:00 019 22:30:00 DIS Emergency KP HARRIS [facility] ER BACK PAIN [id number] 10/16/2019 15:34:00 019 16:23:00 DIS Emergency JIMMY THACKER MD [facility] ER LOW BACK PAIN [id number] 03/17/2017 08:08:00 017 09:34:00 DIS Emergency ZAC CHAMBERS MD [facility] ER R HIP PAIN [id number] 03/03/2015 20:55:00 015 14:25:00 DIS Inpatient ANTONY JARAMILLO MD [facility] [id number] 01/26/2015 19:11:00 015 21:05:00 DIS Outpatient ANTONY JARAMILLO MD [facility] CONTRACTIONS [id number] 04/15/2013 17:30:00 013 13:55:00 DIS Inpatient ANTONY JARAMILLO MD [facility] WS [id number] 05/23/2020 11:17:[address] Emergency CALISTA PECK [facility] ER R ABDOMEN PAIN [id number] 03/27/2012 12:41:00 Document Registration [id number] 05/18/2020 11:00:00 05/18/2020 23:59:5 9 CLS Outpatient YANY BOND APRN [facility] [id number] 06/11/2019 10:00:00 Document Registration [id number] 01/21/2019 16:40:00 Document Registration [id number] 07/10/2018 11:40:00 Document Registration [id number] 10/29/2017 10:20:00 Document Registration [id number] 06/11/2017 09:00:00 Document Registration [id number] 03/10/2017 13:05:00 Document Registration [id number] 06/14/2017 09:09:00 Document Registration
--- NOTE | 2020-05-23 13:15 | Diagnostic Imaging Report ---
PROCEDURE: CT abdomen and pelvis with contrast. TECHNIQUE: Multiple contiguous axial images were obtained through the abdomen and pelvis after administration of intravenous contrast. Auto Exposure Controls were utilized during the CT exam to meet ALARA standards for radiation dose reduction. INDICATION: Right lower quadrant pain. Comparison is made with prior CT from 03/02/2009. FINDINGS: The lung bases are clear. No discrete liver mass is detected. The gallbladder is surgically absent. No biliary ductal dilatation is identified. Pancreas and spleen are unremarkable. There are postsurgical changes of gastric bypass surgery. No adrenal mass is identified. Kidneys are unremarkable. There is no hydronephrosis. Aorta is non-aneurysmal. No abnormally dilated bowel loops are seen to suggest obstruction. There is moderate stool in the colon. No free fluid or fluid collection is identified. The bladder is unremarkable. No inflammatory changes are seen. The appendix is not definitely visualized in the right lower quadrant but no inflammatory changes are detected. IMPRESSION: Moderate stool in the colon suggests constipation. No acute feature is detected. Dictated by: Dictated on workstation # [id number]
--- NOTE | 2020-05-23 13:25 | ED Abdominal Pain ---
General Chief Complaint: Abdominal/GI Problems Stated Complaint: R ABDOMEN PAIN Nursing Triage Note: PT CO OF LOWER ABD PAIN SOMETIMES ON R SIDE RATES PAIN 4/10 HAS HAD SINCE FRIDAY Sepsis Screen: No Definite Risk Source of Information: Patient Exam Limitations: No Limitations History of Present Illness Date Seen by Provider: May 23, 2020 Time Seen by Provider: 11:16 Initial Comments 39-year-old female who presents to emergency room with complaints of right lower abdominal pain for the past 3 days. She denies any nausea, vomiting, diarrhea. R eports that stools have been normal. Denies any symptoms of UTI. Timing/Duration: 3-4 Days Associated Symptoms: Denies Symptoms Allergies and Home Medications Allergies Coded Allergies: povidone-iodine (Unverified Allergy, Mild, RASH, 03/03/15) soap (Unverified Allergy, Mild, RASH, 03/03/15) oxycodone (Verified Allergy, Unknown, itching/gas pain, 11/09/19) Home Medications Cyclobenzaprine HCl 10 Mg Tablet, 10 MG PO BID PRN for MUSCLE SPASMS, (Reported) Docusate Sodium 100 Mg Capsule, 100 MG PO BID Prescribed by: ANTONY ZELAYA on 11/17/19 1200 Ferrous Sulfate 325 Mg Tablet, 325 MG PO DAILY, (Reported) Fluoxetine HCl 20 Mg Capsule, 20 MG PO DAILY, (Reported) Hydrocodone Bit/Acetaminophen 1 Each Tablet, 1 TAB PO BID PRN for PAIN-MODERATE (5-7) Prescribed by: ANTONY ZELAYA on 11/17/19 1200 Hyoscyamine Sulfate 0.125 Mg Tab.subl, 0.125 MG SL Q4H Prescribed by: CALISTA PECK on 05/23/20 1329 Ibuprofen 800 Mg Tablet, 800 MG PO Q6H PRN for PAIN Prescribed by: ANTONY ZELAYA on 11/17/19 1200 Ketorolac Tromethamine 10 Mg Tablet, 10 MG PO Q6H PRN for PAIN-MILD (1-4), (Reported) Patient Home Medication List Home Medication List Reviewed: Yes Review of Systems Review of Systems Constitutional: see HPI; No chills, No fever Gastrointestinal: See HPI, Abdominal Pain All Other Systems Reviewed Negative Unless Noted: Yes Past Ayaqjqe-Ihfqwy-Lbsixd Hx Past Med/Social Hx: Reviewed Nursing Past Med/Soc Hx Patient Social History Alcohol Use: Denies Use Recreational Drug Use: No Smoking Status: Never a Smoker 2nd Hand Smoke Exposure: No Recent Foreign Travel: No Contact w/Someone Who Travel: No Recent Infectious Disease Expo: No Recent Hopitalizations: No Physical Abuse: No Sexual Abuse: No Immunizations Up To Date Tetanus Booster (TDap): More than 5yrs PED Vaccines UTD: Yes Seasonal Allergies Seasonal Allergies: No Past Medical History Surgeries: Yes (GASTRIC BYPASS 2002, SINUS SURGERY X2, c/s x5, DXLS) Section, Hysterectomy, Tubal Ligation Respiratory: Yes (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 FOR TB) Cardiac: No (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) Neurological: No Reproductive Disorders: No 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 Sexually Transmitted Disease: No HIV/AIDS: No Genitourinary: Yes Bladder Infection Gastrointestinal: Yes (GASTRIC BYPASS 2002) Gastroesophageal Reflux, Hiatal Hernia Musculoskeletal: No Endocrine: No HEENT: No Loss of Vision: Denies Hearing Impairment: Denies Cancer: No Psychosocial: No Integumentary: No Blood Disorders: No Adverse Reaction/Blood Tranf: No Family Medical History Reviewed Nursing Family Hx Diabetes mellitus 19 FATHER 19 MOTHER Physical Exam Vital Signs Vital Signs - First Documented 05/23/20 11:35 Temp 36.2 Pulse 83 Resp 18 B/P (MAP) 148/81 (103) Pulse Ox 100 Capillary Refill : Less Than 3 Seconds Height/Weight/BMI Height: 5'5.00" Weight: 170lbs. oz. 77.981809um; 28.00 BMI Method:Stated General Appearance: WD/WN, no apparent distress Respiratory: chest non-tender, lungs clear, normal breath sounds, no respiratory distress, no accessory muscle use Cardiovascular: normal peripheral pulses, regular rate, rhythm, no edema, no gallop, no JVD, no murmur Gastrointestinal: normal bowel sounds, soft, no organomegaly, no pulsatile mass, tenderness (right lower quadrant tenderness) Extremities: normal capillary refill Neurologic/Psychiatric: alert, normal mood/affect, oriented x 3 Skin: normal color, warm/dry Progress/Results/Core Measures Results/Orders Lab Results Laboratory Tests Test 05/23/20 11:40 05/23/20 11:57 Range/Units White Blood Count 4.4 4.3-11.0 10^3/uL Red Blood Count 3.95 L 4.35-5.85 10^6/uL Hemoglobin 10.6 L 11.5-16.0 G/DL Hematocrit 35 35-52 % Mean Corpuscular Volume 89 80-99 FL Mean Corpuscular Hemoglobin 27 25-34 PG Mean Corpuscular Hemoglobin Concent 30 L 32-36 G/DL Red Cell Distribution Width 15.4 H 10.0-14.5 % Platelet Count 253 130-400 10^3/uL Mean Platelet Volume 10.2 7.4-10.4 FL Neutrophils (%) (Auto) 54 42-75 % Lymphocytes (%) (Auto) 35 12-44 % Monocytes (%) (Auto) 7 0-12 % Eosinophils (%) (Auto) 4 0-10 % Basophils (%) (Auto) 1 0-10 % Neutrophils # (Auto) 2.4 1.8-7.8 X 10^3 Lymphocytes # (Auto) 1.6 1.0-4.0 X 10^3 Monocytes # (Auto) 0.3 0.0-1.0 X 10^3 Eosinophils # (Auto) 0.2 0.0-0.3 10^3/uL Basophils # (Auto) 0.0 0.0-0.1 10^3/uL Sodium Level 144 135-145 MMOL/L Potassium Level 4.1 3.6-5.0 MMOL/L Chloride Level 113 H 98-107 MMOL/L Carbon Dioxide Level 24 21-32 MMOL/L Anion Gap 7 5-14 MMOL/L Blood Urea Nitrogen 9 7-18 MG/DL Creatinine 0.78 0.60-1.30 MG/DL Estimat Glomerular Filtration Rate > 60 BUN/Creatinine Ratio 12 Glucose Level 96 70-105 MG/DL Calcium Level 8.5 8.5-10.1 MG/DL Corrected Calcium 8.6 8.5-10.1 MG/DL Total Bilirubin 0.2 0.1-1.0 MG/DL Aspartate Amino Transf (AST/SGOT) 14 5-34 U/L Alanine Aminotransferase (ALT/SGPT) 11 0-55 U/L Alkaline Phosphatase 49 40-136 U/L Total Protein 6.7 6.4-8.2 GM/DL Albumin 3.9 3.2-4.5 GM/DL Amylase Level 69 25-125 U/L Lipase 46 8-78 U/L Urine Color YELLOW Urine Clarity CLEAR Urine pH 6.0 5-9 Urine Specific [place] 1.010 L 1.016-1.022 Urine Protein NEGATIVE NEGATIVE Urine Glucose (UA) NEGATIVE NEGATIVE Urine Ketones NEGATIVE NEGATIVE Urine Nitrite NEGATIVE NEGATIVE Urine Bilirubin NEGATIVE NEGATIVE Urine Urobilinogen 0.2 < = 1.0 MG/DL Urine Leukocyte Esterase NEGATIVE NEGATIVE Urine RBC (Auto) NEGATIVE NEGATIVE Urine RBC NONE /HPF Urine WBC NONE /HPF Urine Squamous Epithelial Cells 5-10 /HPF Urine Crystals NONE /LPF Urine Bacteria NEGATIVE /HPF Urine Casts NONE /LPF Urine Mucus NEGATIVE /LPF Urine Culture Indicated NO My Orders Orders - CALISTA PECK Comprehensive Metabolic Panel (05/23/20 11:41) Lipase (05/23/20 11:41) Amylase (05/23/20 11:41) Ed Iv/Invasive Line Start (05/23/20 11:41) Cbc With Automated Diff (05/23/20 11:41) Fentanyl Injection (Sublimaze Injection (05/23/20 12:30) Ct Abdomen/Pelvis W (05/23/20 12:20) Iohexol Injection (Omnipaque 350 Mg/Ml 1 (05/23/20 12:30) Received Contrast (Hold Metformin- Contr (05/23/20 12:30) Ns (Ivpb) (Sodium Chloride 0.9% Ivpb Bag (05/23/20 12:30) Medications Given in ED Current Medications Medications Dose Ordered Sig/Adina Route Start Time Stop Time Status Last Admin Dose Admin Fentanyl Citrate 25 mcg ONCE ONCE IVP 05/23/20 12:30 05/23/20 12:31 DC 05/23/20 12:38 25 MCG Iohexol 100 ml ONCE ONCE IV 05/23/20 12:30 05/23/20 12:31 DC 05/23/20 12:53 80 ML Sodium Chloride 100 ml ONCE ONCE IV 05/23/20 12:30 05/23/20 12:31 DC 05/23/20 12:53 80 ML Vital Signs/I&O 05/23/20 05/23/20 11:35 13:35 Temp 36.2 36.2 Pulse 83 83 Resp 18 18 B/P (MAP) 148/81 (103) 148/81 (103) Pulse Ox 100 100 Blood Pressure Mean: 103 Progress Progress Note : Time: 13:24 Progress Note I have seen and evaluated the patient. I've informed her of her laboratory and imaging studies. She agrees with plan of care, plans for discharge, return precautions were given. Departure Impression Primary Impression: Constipation Disposition: 01 HOME, SELF-CARE Condition: Stable/Unchanged Departure-Patient Inst. Decision time for Depature: 13:24 Referrals: [facility] (PCP/Family) Primary Care Physician Patient Instructions: Constipation, Adult (DC) Add. Discharge Instructions: Continue to use your suppositories as discussed. You may also use MiraLAX or magnesium citrate to help with cleanout. Follow-up with her primary care provider within 1 week for recheck. Return back to the emergency room for worsening symptoms or concerns as needed. All discharge instructions reviewed with patient and/or family. Voiced understanding. Scripts Hyoscyamine Sulfate (Levsin-Sl) 0.125 Mg Tab.subl 0.125 MG SL Q4H for 4 Days, #10 TAB 0 Refills Prov: CALISTA PECK 05/23/20 CALISTA PECK May 23, 2020 13:25
[2020-05-23] MEDS ORDERED: HYOS0.1283 SL (13:29)
[2020-05-23 13:35] VITALS: BP 148/81
== END 2020-05-23 13:41 | disposition home or self-care (01) ==
LOC: EDUNIT# 11:15 → ER 11:17
DX: K59.00 Constipation, unspecified (principal); Z91.041 Radiographic dye allergy status; Z88.5 Allergy status to narcotic agent
CPT/HCPCS: 36415; 74177; 80053; 81000; 82150; 83690; 84703; 85025

== ENCOUNTER → 2020-12-07 | Outpatient (CLI) | payer OTHER ==
[~2020-12-07] MED LIST changes: +HYOS0.1283 SL
--- NOTE | 2020-12-07 20:01 | Diagnostic Imaging Report ---
EXAMINATION: Radiographs for assessment of scoliosis, 3 views. COMPARISON: CT abdomen and pelvis May 23, 2020. HISTORY: 40-year-old female, back pain. Scoliosis. FINDINGS: There is a lumbar levocurvature with Kenyon angle of 17 degrees as measured from the inferior endplate of L4 to the inferior endplate of L1. There are five lumbar-type vertebral bodies. The alignment of the thoracic spine is grossly unremarkable in medial to lateral direction. There is no identified vertebral body anomaly. The sacroiliac joints are grossly unremarkable in appearance. There are right upper quadrant surgical clips. There is postoperative material near midline at the level of the epigastric region. There are advanced disc degenerative changes at L3-L4 and L4-L5. There is mild disc height loss at L5-S1. IMPRESSION: 1. Lumbar dextroscoliosis with Kenyon angle of 17 degrees as measured from the inferior endplate of L4 to the inferior endplate of L1. 2. Medial alignment of the thoracic spine is unremarkable. 3. Degenerative changes of the lower lumbar spine most notable at L3-L4, L4-L5 and L5-S1. Dictated by: Dictated on workstation # [id number]
== END ==
LOC: LAB 15:10
PROVIDERS: ATTEND Internal Medicine
DX: M47.816 Spondylosis without myelopathy or radiculopathy, lumbar region (principal); M47.817 Spondylosis without myelopathy or radiculopathy, lumbosacral region; M41.86 Other forms of scoliosis, lumbar region
CPT/HCPCS: 72081

== ENCOUNTER → 2020-12-21 | Outpatient (CLI) | payer OTHER ==
--- NOTE | 2020-12-21 11:26 | Diagnostic Imaging Report ---
PROCEDURE: MRI lumbar spine. TECHNIQUE: Multiplanar, multisequence MRI of the lumbar spine was performed without contrast. INDICATION: Low back pain. COMPARISON: No prior studies are available for comparison. FINDINGS: There is normal lordotic curvature. There is left convexity lumbar scoliotic curvature. There is minimal retrolisthesis of L3 on L4 and L4 on L5. Vertebral body heights are maintained. No acute compression fracture is identified. No geographic marrow lesion is seen. There is degenerative disc disease with disc space narrowing and desiccation at the L3-L4 and L4-L5 levels. Conus is unremarkable at the L1-L2 level. T12-L1: Central canal is widely patent. Neuroforamina are widely patent. L1-L2: Central canal and neuroforamina are widely patent. L2-L3: Central canal and neuroforamina are widely patent. L3-L4: There is some ligamentous thickening and broad-based disc/osteophyte complex present. Central canal is widely patent. There is moderate right neuroforaminal narrowing. L4-L5: There are some degenerative facet changes. Central canal is widely patent. There is moderate bilateral neuroforaminal narrowing. L5-S1: There is left paramidline wide-based disc bulge, however no resultant central canal narrowing is seen. There is facet arthropathy noted. Neuroforamina are patent. Paraspinous tissues are unremarkable. IMPRESSION: Lower lumbar degenerative disc and facet disease. There is neuroforaminal narrowing, described level by level above. No central canal stenosis is detected. Dictated by: Dictated on workstation # [id number]
== END ==
LOC: RAD 12-12 10:15
PROVIDERS: ATTEND Nurse Practitioner Family
DX: M47.816 Spondylosis without myelopathy or radiculopathy, lumbar region (principal); M47.27 Other spondylosis with radiculopathy, lumbosacral region; M51.36 Other intervertebral disc degeneration, lumbar region; M51.17 Intervertebral disc disorders with radiculopathy, lumbosacral region; M48.061 Spinal stenosis, lumbar region without neurogenic claudication; M41.56 Other secondary scoliosis, lumbar region; M53.9 Dorsopathy, unspecified
CPT/HCPCS: 72148

== ENCOUNTER → 2021-11-05 | Outpatient (CLI) | payer OTHER ==
[~2021-11-05] MED LIST changes: +CYCL10TA25 PO; -CYCL10TA9 PO; +DOCU-239 PO; -FLUO20CA46 PO; +FLUO20CA48 PO
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
== END ==
LOC: RAD 15:22
PROVIDERS: ATTEND Nurse Practitioner Family
DX: S00.83XA Contusion of other part of head, initial encounter (principal); X58.XXXA Exposure to other specified factors, initial encounter
CPT/HCPCS: 70150

== ENCOUNTER → 2023-02-18 | Outpatient (CLI) | payer OTHER ==
--- NOTE | 2023-02-19 12:01 | Diagnostic Imaging Report ---
PROCEDURE: MRI lumbar spine without contrast. TECHNIQUE: Multiplanar, multisequence MRI of the lumbar spine was performed without contrast. INDICATION: Back and right hip pain. COMPARISON: 12/21/2020. FINDINGS: 5 lumbar type vertebral bodies are visualized with the last well-formed disc space designated L5-S1. No acute fracture or dislocation is seen in the lumbar spine. Alignment is anatomic. Vertebral body heights and disc spaces are well-maintained. Modic type I endplate degenerative changes are present at the L3-L4 level. No suspicious focal osseous lesions. The conus terminates at the L1 level. No masses are seen associated with the conus or nerve roots of the cauda equina. No epidural collections are identified. Multilevel degenerative changes are seen in the lumbar spine with disc bulges, facet hypertrophy, and buckling of the ligamentum flavum. T12-L1: No significant spinal canal or foraminal stenosis. L1-L2: No significant spinal canal or foraminal stenosis. L2-L3: No significant spinal canal or foraminal stenosis. L3-L4: Broad-based disc bulge, facet hypertrophy, and buckling of the ligamentum flavum results in no significant spinal canal narrowing and moderate right and [id number] left foraminal stenosis. L4-L5: Broad-based disc bulge, facet hypertrophy, and buckling of the ligamentum flavum results in no significant spinal canal narrowing and [id number] right and moderate left foraminal stenosis. L5-S1: Broad-based disc bulge, facet hypertrophy, and buckling of the ligamentum flavum results in mild spinal canal narrowing and mild right and moderate left foraminal stenosis. Paravertebral soft tissues are unremarkable. IMPRESSION: 1. No acute fracture or dislocation in the lumbar spine. 2. Multilevel degenerative changes in the lumbar spine, greatest at L3-L4, L4-L5 and L5-S1. 3. Modic type I endplate degenerative changes at the L3-L4 level. Dictated by: Dictated on workstation # [id number]
== END ==
LOC: RAD 09:00
PROVIDERS: ATTEND Pain Medicine Interventional Pain Medicine
DX: M47.816 Spondylosis without myelopathy or radiculopathy, lumbar region (principal); M47.27 Other spondylosis with radiculopathy, lumbosacral region
CPT/HCPCS: 72148